=== PATIENT | male | born 2000 | race Caucasian/White ===

== ENCOUNTER 2018-10-27 19:43 | Emergency (ER) | payer SELFPAY ==
[2018-10-27] MEDS ORDERED: LIDOCAINE 1% MPF 5 ML VIAL ONE ×2 (20:11→20:15)
[2018-10-27] MEDS ORDERED: TETANUS & DIPHTHERIA TOX,ADULT 0.5 ML VIAL ONE (20:42)
--- NOTE | 2018-10-27 20:50 | EDPHYS ---
Physician Documentation [facility] Name: Trenton Moon Age: 18 yrs Sex: Male : 2000 Arrival Date: 10/27/2018 Time: 19:45 Bed 20 Private MD: None, None ED Physician Fortunato Hernandez HPI: 10/27 20:38 This 18 yrs old Male presents to ER via Ambulatory with complaints of Passed nh Out Prior To Arrival, Finger Laceration. 20:38 The patient has a laceration related to: playing, from a sharp metal object, occurred nh at home. The laceration(s) is(are) located on the palmar aspect of distal phalanx of left index finger. Onset: The symptoms/episode began/occurred acutely, just prior to arrival. Associated signs and symptoms: The patient has no apparent associated signs or symptoms. The patient has not experienced similar symptoms in the past. The patient has not recently seen a physician. Historical: - Allergies: 20:02 No Known Allergies; tl2 - Home Meds: 20:02 None [Active]; tl2 - PMHx: 20:02 None; tl2 - PSHx: 20:02 None; tl2 - Immunization history:: Last tetanus immunization: unknown. - Social history:: Smoking status: Patient/guardian denies using tobacco. - Ebola Screening: : No symptoms or risks identified at this time. ROS: 20:38 Constitutional: Negative for fever, chills, and weight loss, Eyes: Negative for injury, nh pain, redness, and discharge, ENT: Negative for injury, pain, and discharge, Neck: Negative for injury, pain, and swelling, Cardiovascular: Negative for chest pain, palpitations, and edema, Respiratory: Negative for shortness of breath, cough, wheezing, and pleuritic chest pain, Abdomen/GI: Negative for abdominal pain, nausea, vomiting, diarrhea, and constipation, Back: Negative for injury and pain, : Negative for injury, bleeding, discharge, and swelling, MS/Extremity: Negative for injury and deformity, Neuro: Negative for headache, weakness, numbness, tingling, and seizure, Psych: Negative for depression, anxiety, suicide ideation, homicidal ideation, and hallucinations, Allergy/Immunology: Negative for hives, rash, and allergies, Endocrine: Negative for neck swelling, polydipsia, polyuria, polyphagia, and marked weight changes, Hematologic/Lymphatic: Negative for swollen nodes, abnormal bleeding, and unusual bruising. 20:38 Skin: Positive for laceration(s). Exam: 20:38 Constitutional: This is a well developed, well nourished patient who is awake, alert, nh and in no acute distress. Head/Face: Normocephalic, atraumatic. Eyes: Pupils equal round and reactive to light, extra-ocular motions intact. Lids and lashes normal. Conjunctiva and sclera are non-icteric and not injected. Cornea within normal limits. Periorbital areas with no swelling, redness, or edema. ENT: Nares patent. No nasal discharge, no septal abnormalities noted. Tympanic membranes are normal and external auditory canals are clear. Oropharynx with no redness, swelling, or masses, exudates, or evidence of obstruction, uvula midline. Mucous membranes moist. Neck: Trachea midline, no thyromegaly or masses palpated, and no cervical lymphadenopathy. Supple, full range of motion without nuchal rigidity, or vertebral point tenderness. No Meningismus. Chest/axilla: Normal chest wall appearance and motion. Nontender with no deformity. No lesions are appreciated. Cardiovascular: Regular rate and rhythm with a normal S1 and S2. No gallops, murmurs, or rubs. Normal PMI, no JVD. No pulse deficits. Respiratory: Lungs have equal breath sounds bilaterally, clear to auscultation and percussion. No rales, rhonchi or wheezes noted. No increased work of breathing, no retractions or nasal flaring. Abdomen/GI: Soft, non-tender, with normal bowel sounds. No distension or tympany. No guarding or rebound. No evidence of tenderness throughout. Back: No spinal tenderness. No costovertebral tenderness. Full range of motion. MS/ Extremity: Pulses equal, no cyanosis. Neurovascular intact. Full, normal range of motion. Neuro: Awake and alert, GCS 15, oriented to person, place, time, and situation. Cranial nerves II-XII grossly intact. Motor strength 5/5 in all extremities. Sensory grossly intact. Cerebellar exam normal. Normal gait. Psych: Awake, alert, with orientation to person, place and time. Behavior, mood, and affect are within normal limits. 20:38 Skin: injury, laceration(s), the wound is approximately 2 cm(s), with a depth of .25 cm(s), of the palmar aspect of distal phalanx of left index finger. Vital Signs: 20:02 BP 141 / 65; Pulse 67; Resp 18; Temp 99.9(O); Pulse Ox 100% on R/A; Weight 74.84 kg; tl2 Height 6 ft. 1 in. (185.42 cm); Pain 0/10; 20:02 Body Mass Index 21.77 (74.84 kg, 185.42 cm) tl2 Laceration: 20:38 Wound Repair of 1.5cm ( 0.6in ) subcutaneous laceration to palmar aspect of distal nh phalanx of left index finger. Distal neuro/vascular/tendon intact. MDM: 19:47 Patient medically screened. nh 20:38 Data reviewed: vital signs, nurses notes, and as a result, I will discharge patient. nc Counseling: I had a detailed discussion with the patient and/or guardian regarding: the historical points, exam findings, and any diagnostic results supporting the discharge/admit diagnosis, the need for outpatient follow up, to return to the emergency department if symptoms worsen or persist or if there are any questions or concerns that arise at home. 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 Exp: jd3 12/08/2020. Lot #: [id number]. } Route: IM; Site: right deltoid; Disposition: 10/27/18 20:49 Discharged to Home. Impression: Laceration of blood vessel of left index finger. - Condition is Stable. - Discharge Instructions: Laceration Care, Adult. - Prescriptions for Doxycycline Hyclate 100 mg Oral Tablet - take 1 tablet by ORAL route every 12 hours; 20 tablet. Bactrim 400- 80 mg Oral Tablet - take 2 tablets by ORAL route 2 times per day for 10 days; 20 tablet. - Medication Reconciliation Form, Thank You Letter, Antibiotic Education, Prescription Opioid Use form. - Follow up: Private Physician; When: 2 - 3 days; Reason: Recheck today's complaints. - Problem is new. - Symptoms are unchanged. Addendum: 10/29/2018 21:01 Co-signature as Attending Physician, Fortunato Hernandez MD Available for consultation at p s1 all times . Signatures: Helen Bridges RN RN aa1 Leonie Crooks, AUTOMOTIVE ELECTRICIAN AUTOMOTIVE ELECTRICIAN nc Melissa Adamson RN RN tl2 Shay Cifuentes RN RN jd3 Fortunato Hernandez MD MD ps1 Corrections: (The following items were deleted from the chart) 10/27 20:57 20:49 10/27/2018 20:49 Discharged to Home. Impression: Laceration of blood vessel of aa1 left index finger. Condition is Stable. Forms are Medication Reconciliation Form, Thank You Letter, Antibiotic Education, Prescription Opioid Use. Follow up: Private Physician; When: 2 - 3 days; Reason: Recheck today's complaints. Problem is new. Symptoms are unchanged. nh
--- NOTE | 2018-10-27 20:50 | ER ---
Nurse's Notes [facility] Name: Trenton Moon Age: 18 yrs Sex: Male : 2000 Arrival Date: 10/27/2018 Time: 19:45 Bed 20 Private MD: None, None Diagnosis: Laceration of blood vessel of left index finger Presentation: 10/27 20:00 Presenting complaint: Patient states: small laceration to L pointer finger from pocket tl2 knife. bleeding controlled. Pt reports passing out after incident for about 10-20 seconds. Transition of care: patient was not received from another setting of care. Onset of symptoms was October 27, 2018 at 19:00. Risk Assessment: Do you want to hurt yourself or someone else? Patient reports no desire to harm self or others. Initial Sepsis Screen: Does the patient meet any 2 criteria? No. Patient's initial sepsis screen is negative. Does the patient have a suspected source of infection? No. Patient's initial sepsis screen is negative. Care prior to arrival: None. 20:00 Method Of Arrival: Ambulatory tl2 20:00 Acuity: VELASQUEZ 4 tl2 Triage Assessment: 20:02 Injury Description: Laceration sustained to palmar aspect of distal phalanx of left tl2 index finger is clean, jagged, 0.5 to 2.5 cm long, not bleeding, was sustained 30-60 minutes ago. a small amount of bleeding noted at this time. Historical: - Allergies: 20:02 No Known Allergies; tl2 - Home Meds: 20:02 None [Active]; tl2 - PMHx: 20:02 None; tl2 - PSHx: 20:02 None; tl2 - Immunization history:: Last tetanus immunization: unknown. - Social history:: Smoking status: Patient/guardian denies using tobacco. - Ebola Screening: : No symptoms or risks identified at this time. Screenin:03 Abuse screen: Denies threats or abuse. Nutritional screening: No deficits noted. jd3 Tuberculosis screening: No symptoms or risk factors identified. Fall Risk Ambulatory Aid- None/Bed Rest/Nurse Assist (0 pts). Gait- Normal/Bed Rest/Wheelchair (0 pts) Mental Status- Oriented to own ability (0 pts). Total Wolfe Fall Scale indicates No Risk (0-24 pts). Assessment: 20:02 General: Appears in no apparent distress. uncomfortable, Behavior is cooperative, jd3 appropriate for age, anxious. Pain: Complains of pain in left index finger Quality of pain is described as sharp. Neuro: Level of Consciousness is awake, alert, obeys commands, Oriented to person, place, time, situation, Appropriate for age. Cardiovascular: Capillary refill < 3 seconds Patient's skin is warm and dry. Respiratory: Airway is patent Respiratory effort is even, unlabored, Respiratory pattern is regular, symmetrical. GI: No signs and/or symptoms were reported involving the gastrointestinal system. : No signs and/or symptoms were reported regarding the genitourinary system. EENT: No signs and/or symptoms were reported regarding the EENT system. Derm: Skin is intact, Skin is dry, Skin is normal, Skin temperature is warm. Musculoskeletal: Circulation, motion, and sensation intact. Range of motion: intact in all extremities. 20:02 Injury Description: Laceration sustained to left index finger is clean, 0.5 to 2.5 cm jd3 long, not bleeding, a small amount of bleeding noted at this time. 20:54 Reassessment: Patient appears in no apparent distress at this time. Patient is alert, aa1 oriented x 3, equal unlabored respirations, skin warm/dry/pink. Discussed d/c \T\ f/u instructions with pt \T\ family; denies questions or concerns at this time Patient states feeling better. Vital Signs: 20:02 BP 141 / 65; Pulse 67; Resp 18; Temp 99.9(O); Pulse Ox 100% on R/A; Weight 74.84 kg; tl2 Height 6 ft. 1 in. (185.42 cm); Pain 0/10; 20:02 Body Mass Index 21.77 (74.84 kg, 185.42 cm) tl2 ED Course: 19:45 Patient arrived in ED. mr 19:45 None, None is Private Physician. mr 19:47 [facility] Cro[facility] nh 19:47 Fortunato Hernandez MD is Attending Physician. nh 20:01 Triage completed. tl2 20:02 Shay Cifuentes, JEFFREY is Primary Nurse. jd3 20:03 Patient has correct armband on for positive identification. Bed in low position. Call jd3 light in reach. Side rails up X 1. Adult w/ patient. 20:04 Arm band placed on. jd3 20:30 Assist provider with laceration repair on palmar aspect of distal phalanx of left index aa1 finger that was 2.5 cm. or less using sutures. Set up tray. Performed by Leonie HOLDEN Patient tolerated well. 20:57 Patient did not have IV access during this emergency room visit. 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 Exp: jd3 12/08/2020. Lot #: [id number]. } Route: IM; Site: right deltoid; Outcome: 20:49 Discharge ordered by . ca 20:56 Discharged to home ambulatory, with friend, with significant other. aa1 20:56 Condition: good 20:56 Discharge instructions given to patient, significant other, Instructed on discharge instructions, follow up and referral plans. medication usage, wound care, Demonstrated understanding of instructions, follow-up care, medications, wound care, Prescriptions given X 2. 20:57 Patient left the ED. aa1 Signatures: Helen Bridges RN RN aa1 Leonie Crooks FNP FNP ca Becka Durham mr Melissa Adamson RN RN tl2 Shay Cifuentes RN RN jd3 Corrections: (The following items were deleted from the chart) 20:21 20:02 Derm: Skin is intact, Skin is dry, Skin is normal, Skin temperature is warm jd3 jd3
== END 2018-10-27 20:57 | disposition home or self-care (01) ==
LOC: ER 19:43
PROC: 0JQK0ZZ Repair Left Hand Subcutaneous Tissue and Fascia, Open Approach (ICD-10-PCS; principal; 2018-10-27)
DX: S65.511A Laceration of blood vessel of left index finger, initial encounter (principal); W26.0XXA Contact with knife, initial encounter; Y92.009 Unspecified place in unspecified non-institutional (private) residence as the place of occurrence of the external cause; Z23 Encounter for immunization
CPT/HCPCS: 90714; 99283

== ENCOUNTER 2019-09-05 23:14 | Emergency (ER) | payer SELFPAY ==
[2019-09-05] MEDS ORDERED: LORazepam 2 MG/ML VIAL ONE (23:23)
[2019-09-05] MEDS ORDERED: PROMETHAZINE 25 MG/ML VIAL ONE (23:23)
[2019-09-05] MEDS ORDERED: DIPHENHYDRAMINE 50 MG/ML VIAL ONE (23:24)
[2019-09-05] MEDS ORDERED: EPINEPHRINE/PF 1 MG/ML AMP ONE (23:24)
[2019-09-05] MEDS ORDERED: FAMOTIDINE 20 MG/2 ML VIAL IV ONE (23:30)
[2019-09-05] MEDS ORDERED: METHYLPREDNISOLONE 125 MG INJ ONE (23:30)
[2019-09-05] MEDS ORDERED: NA CHLORIDE 0.9% 1,000 ML ONE (23:30)
--- NOTE | 2019-09-06 00:44 | EDPHYS ---
Physician Documentation [facility] Name: Trenton Moon Age: 19 yrs Sex: Male : 2000 Arrival Date: 09/05/2019 Time: 23:16 Bed 6 Private MD: ED Physician Sebastien rFanco HPI: 09/05 23:37 This 19 yrs old Male presents to ER via Unassigned with complaints of snw Allergic Reaction. 23:37 The patient presents with itching, rash, that is diffuse, redness of skin. Onset: The snw symptoms/episode began/occurred suddenly, and became worse and became persistent. Associated signs and symptoms: Pertinent positives: sore throat. Possible causes: went to change the litter box and erupted in rash/redness. At home the patient or guardian has treated the symptoms with nothing. Severity of symptoms: At their worst the symptoms were severe in the emergency department the symptoms are unchanged. The patient has not experienced similar symptoms in the past. The patient has not recently seen a physician. Historical: - Allergies: 23:45 poison keke; bb - Home Meds: 23:45 None [Active]; bb - PMHx: 23:45 Heart Murmur; bb - PSHx: 23:45 None; bb - Immunization history:: Adult Immunizations up to date. - Social history:: Smoking status: Patient/guardian denies using tobacco, Patient uses street drugs, marijuana. - Ebola Screening: : No symptoms or risks identified at this time. ROS: 23:32 Constitutional: Negative for fever, chills, and weight loss, Eyes: Negative for injury, snw pain, redness, and discharge, ENT: Negative for injury, pain, and discharge, Neck: Negative for injury, pain, and swelling, Cardiovascular: Negative for chest pain, palpitations, and edema, Respiratory: Negative for shortness of breath, cough, wheezing, and pleuritic chest pain, Abdomen/GI: Negative for abdominal pain, nausea, vomiting, diarrhea, and constipation, Back: Negative for injury and pain, : Negative for injury, bleeding, discharge, and swelling, MS/Extremity: Negative for injury and deformity, Neuro: Negative for headache, weakness, numbness, tingling, and seizure. 23:32 Skin: Positive for erythema, swelling, of the generalized. Exam: 23:30 Head/Face: Normocephalic, atraumatic. Eyes: Pupils equal round and reactive to light, snw extra-ocular motions intact. Lids and lashes normal. Conjunctiva and sclera are non-icteric and not injected. Cornea within normal limits. Periorbital areas with no swelling, redness, or edema. 23:30 Neck: Trachea midline, no thyromegaly or masses palpated, and no cervical lymphadenopathy. Supple, full range of motion without nuchal rigidity, or vertebral point tenderness. No Meningismus. Chest/axilla: Normal chest wall appearance and motion. Nontender with no deformity. No lesions are appreciated. Cardiovascular: Regular rate and rhythm with a normal S1 and S2. No gallops, murmurs, or rubs. Normal PMI, no JVD. No pulse deficits. Respiratory: Lungs have equal breath sounds bilaterally, clear to auscultation and percussion. No rales, rhonchi or wheezes noted. No increased work of breathing, no retractions or nasal flaring. Abdomen/GI: Soft, non-tender, with normal bowel sounds. No distension or tympany. No guarding or rebound. No evidence of tenderness throughout. Back: No spinal tenderness. No costovertebral tenderness. Full range of motion. MS/ Extremity: Pulses equal, no cyanosis. Neurovascular intact. Full, normal range of motion. Neuro: Awake and alert, GCS 15, oriented to person, place, time, and situation. Cranial nerves II-XII grossly intact. Motor strength 5/5 in all extremities. Sensory grossly intact. Cerebellar exam normal. Normal gait. Psych: Awake, alert, with orientation to person, place and time. Behavior, mood, and affect are within normal limits. 23:30 Constitutional: The patient appears anxious, hyperemic with hives 23:30 ENT: Nose: is normal, Mouth: is normal, Posterior pharynx: swelling, that is mild, erythema, that is marked, Voice: is normal. 23:30 Skin: Appearance: Color: erythematous, Temperature: warm, Moisture: normal moisture, hives. Vital Signs: 23:20 BP 165 / 58; Pulse 111; Resp 24 S; Temp 99.3(O); Pulse Ox 98% on R/A; Weight 72.57 kg bb (R); Height 5 ft. 11 in. (180.34 cm) (R); Pain 04/29; 23:36 BP 117 / 75; Pulse 92; Resp 18; Pulse Ox 92% on R/A; Weight 72.57 kg; mg2 09/06 00:16 BP 123 / 87; Pulse 89; Resp 18; Pulse Ox 100% on 2 lpm NC; ak1 09/05 23:20 Body Mass Index 22.32 (72.57 kg, 180.34 cm) bb MDM: 09/05 23:38 Patient medically screened. snw 23:55 Data reviewed: vital signs, nurses notes. Data interpreted: Pulse oximetry: on room air snw is 92 %. Interpretation: hypoxia. Plan: O2 by NC applied. Counseling: I had a detailed discussion with the patient and/or guardian regarding: the historical points, exam findings, and any diagnostic results supporting the discharge/admit diagnosis, the need for outpatient follow up, to return to the emergency department if symptoms worsen or persist or if there are any questions or concerns that arise at home. Response to treatment: the patient's symptoms have markedly improved after treatment. Special discussion: Based on the history and exam findings, there is no indication for further emergent testing or inpatient evaluation. I discussed with the patient/guardian the need to see the refinery operator crude unit for further evaluation of the symptoms. I discussed with the patient/guardian the need to see the primary care provider for further evaluation of the symptoms. Administered Medications: 23:29 Drug: Benadryl 25 mg Route: IVP; Site: right antecubital; mg2 23:47 Follow up: Response: No adverse reaction; Marked relief of symptoms mg2 23:29 Drug: Phenergan 25 mg Route: IVP; Site: right antecubital; mg2 23:47 Follow up: Response: No adverse reaction; Marked relief of symptoms mg2 23:36 Drug: NS 0.9% 1000 ml Route: IV; Rate: 1 bolus; Site: right antecubital; mg2 09/06 00:17 Follow up: IV Status: Completed infusion; IV Intake: 1000ml ak1 09/05 23:36 Drug: SOLU-Medrol 125 mg Route: IVP; Site: right antecubital; mg2 23:46 Follow up: Response: No adverse reaction; Marked relief of symptoms mg2 23:36 Drug: Pepcid 20 mg Route: IVP; Site: right antecubital; mg2 23:46 Follow up: Response: No adverse reaction; Marked relief of symptoms mg2 23:37 Drug: Ativan 2 mg Route: IVP; Site: right antecubital; mg2 23:46 Follow up: Response: No adverse reaction; Marked relief of symptoms mg2 23:39 CANCELLED (Physician Discretion): EPINEPHrine 0.1mg/mL 1:10,000 0.03 mg/kg IVP once; mg2 not to exceed 1 milligram 23:40 Drug: EPINEPHrine 1mg/mL 1:1,000 0.3 mg {Note: 0.3 ml given .} Route: IM; Site: left mg2 deltoid; 23:46 Follow up: Response: No adverse reaction; Marked relief of symptoms mg2 Disposition: 09/06 06:14 Co-signature as Attending Physician, Sebastien Franco MD I agree with the assessment and kdr plan of care. Disposition: 09/06/19 00:43 Discharged to Home. Impression: Anaphylactic reaction, unspecified. - Condition is Stable. - Discharge Instructions: Allergies, Adult, Anaphylactic Reaction, Adult. - Prescriptions for Prednisone 20 mg Oral Tablet - take 2 tablet by ORAL route once daily for 5 days; 10 tablet. EpiPen 0.3 mg Injection auto- injector - inject 1 pen by INTRAMUSCULAR route as directed Inject into the outer portion of the thigh, through clothing if necessary. Indicated in the emergency treatment of allergic reactions, if used go immediately to nearest emergency room; 1 box. Zyrtec 10 mg Oral Tablet - take 1 tablet by ORAL route once daily As needed; 20 tablet. Pepcid 20 mg Oral Tablet - take 1 tablet by ORAL route once daily; 20 tablet. - Medication Reconciliation Form, Thank You Letter, Antibiotic Education, Prescription Opioid Use form. - Follow up: Private Physician; When: Tomorrow; Reason: Recheck today's complaints, Continuance of care, Re-evaluation by your physician. Follow up: Emergency Department; When: As needed; Reason: Worsening of condition. - Notes: Do not expose yourself to cat litter Signatures: Sebastien Franco MD MD kdr Therrien, Shelly, NAVIN-C CONTRACT PROCESSOR-Csnw Yasmeen Fowler RN RN bb Ximena Monae RN RN Topher Damon RN RN mg2 Gretel Mayorga RN ak1 Corrections: (The following items were deleted from the chart) 09/05 23:39 23:23 EpiPen [EPINEPHrine 0.1mg/mL 1:10,000 0.03 mg/kg IVP once; not to exceed 1 mg2 milligram] ordered. duane 09/06 01:00 00:43 09/06/2019 00:43 Discharged to Home. Impression: Anaphylactic reaction, ea unspecified. Condition is Stable. Forms are Medication Reconciliation Form, Thank You Letter, Antibiotic Education, Prescription Opioid Use. Follow up: Private Physician; When: Tomorrow; Reason: Recheck today's complaints, Continuance of care, Re-evaluation by your physician. Follow up: Emergency Department; When: As needed; Reason: Worsening of condition. snw
--- NOTE | 2019-09-06 00:44 | ER ---
Nurse's Notes [facility] Name: Trenton Moon Age: 19 yrs Sex: Male : 2000 Arrival Date: 09/05/2019 Time: 23:16 Bed 6 Private MD: Diagnosis: Anaphylactic reaction, unspecified Presentation: 09/05 23:20 Presenting complaint: Patient states: he was cleaning out to cat litter box and approx bb 30 mins later turned red all over. Transition of care: patient was not received from another setting of care. Onset: The symptoms/episode began/occurred acutely. Anaphylaxis evaluation. Anaphylaxis evaluation, no signs or symptoms of anaphylaxis were noted. Onset of symptoms was September 05, 2019. Risk Assessment: Do you want to hurt yourself or someone else? Patient reports no desire to harm self or others. Initial Sepsis Screen: Does the patient meet any 2 criteria? No. Patient's initial sepsis screen is negative. Does the patient have a suspected source of infection? No. Patient's initial sepsis screen is negative. Care prior to arrival: None. 23:20 Method Of Arrival: Ambulatory bb 23:20 Acuity: VELASQUEZ 2 bb Historical: - Allergies: 23:45 poison keke; bb - Home Meds: 23:45 None [Active]; bb - PMHx: 23:45 Heart Murmur; bb - PSHx: 23:45 None; bb - Immunization history:: Adult Immunizations up to date. - Social history:: Smoking status: Patient/guardian denies using tobacco, Patient uses street drugs, marijuana. - Ebola Screening: : No symptoms or risks identified at this time. Screenin:47 Abuse screen: Denies threats or abuse. Denies injuries from another. Nutritional mg2 screening: No deficits noted. Tuberculosis screening: No symptoms or risk factors identified. Fall Risk IV access (20 points). Assessment: 23:47 General: Appears uncomfortable, Behavior is anxious. Pain: Complains of pain in head mg2 Pain currently is 2 out of 10 on a pain scale. Quality of pain is described as aching, Pain began gradually, Is intermittent. Neuro: Level of Consciousness is awake, alert, obeys commands, Oriented to person, place, time, situation. Cardiovascular: Capillary refill < 3 seconds Patient's skin is warm and dry. Respiratory: Airway is patent Respiratory effort is even, unlabored, Respiratory pattern is regular, symmetrical, GI: No deficits noted. : No signs and/or symptoms were reported regarding the genitourinary system. EENT: No signs and/or symptoms were reported regarding the EENT system. Derm: Skin is intact, is healthy with good turgor, Skin is pink, warm \T\ dry. normal, Rash noted that is red, urticaria, on back, chest, abdomen, right arm, left arm, right leg and left leg. Musculoskeletal: Circulation, motion, and sensation intact. Capillary refill < 3 seconds. 09/06 00:13 Reassessment: Patient appears in no apparent distress at this time. Patient states ak1 feeling better. Patient states symptoms have improved. 00:14 Reassessment: eating and tolerating ice chips. ak1 00:44 General: Appears in no apparent distress. comfortable, Behavior is cooperative, drowsy. ak1 Neuro: Level of Consciousness is obeys commands, Oriented to person, place, Speech is slurred, muffled from IV medications. 00:56 Reassessment: Patient and/or family updated on plan of care and expected duration. Pain ea level reassessed. Pt is drowsy, cooperative, respirations even and unlabored. Pt oriented to person and place. Discharge instruction given to , verbalized the understanding of instruction. Pt left via wheelchair, tolerating well. Pt assisted to private vehicle per ED staff accompanied by . Vital Signs: 09/05 23:20 BP 165 / 58; Pulse 111; Resp 24 S; Temp 99.3(O); Pulse Ox 98% on R/A; Weight 72.57 kg bb (R); Height 5 ft. 11 in. (180.34 cm) (R); Pain 6/10; 23:36 BP 117 / 75; Pulse 92; Resp 18; Pulse Ox 92% on R/A; Weight 72.57 kg; mg2 09/06 00:16 BP 123 / 87; Pulse 89; Resp 18; Pulse Ox 100% on 2 lpm NC; ak1 09/05 23:20 Body Mass Index 22.32 (72.57 kg, 180.34 cm) bb ED Course: 09/05 23:16 Patient arrived in ED. es 23:21 Nayeli Orosco FNP-C [facility]. snw 23:21 Sebastien Franco MD is Attending Physician. snw 23:22 Ximena Monae RN is Primary Nurse. ea 23:22 Inserted saline lock: 20 gauge in right antecubital area, using aseptic technique. ea 23:45 Triage completed. bb 23:45 Arm band placed on. mg2 23:47 No provider procedures requiring assistance completed. mg2 23:49 Patient has correct armband on for positive identification. site monitor on. Pulse mg2 ox on. NIBP on. Door closed. 09/06 00:55 IV discontinued, intact, bleeding controlled, No redness/swelling at site. Pressure ea dressing applied. Administered Medications: 09/05 23:29 Drug: Benadryl 25 mg Route: IVP; Site: right antecubital; mg2 23:47 Follow up: Response: No adverse reaction; Marked relief of symptoms mg2 23:29 Drug: Phenergan 25 mg Route: IVP; Site: right antecubital; mg2 23:47 Follow up: Response: No adverse reaction; Marked relief of symptoms mg2 23:36 Drug: NS 0.9% 1000 ml Route: IV; Rate: 1 bolus; Site: right antecubital; mg2 09/06 00:17 Follow up: IV Status: Completed infusion; IV Intake: 1000ml ak1 09/05 23:36 Drug: SOLU-Medrol 125 mg Route: IVP; Site: right antecubital; mg2 23:46 Follow up: Response: No adverse reaction; Marked relief of symptoms mg2 23:36 Drug: Pepcid 20 mg Route: IVP; Site: right antecubital; mg2 23:46 Follow up: Response: No adverse reaction; Marked relief of symptoms mg2 23:37 Drug: Ativan 2 mg Route: IVP; Site: right antecubital; mg2 23:46 Follow up: Response: No adverse reaction; Marked relief of symptoms mg2 23:39 CANCELLED (Physician Discretion): EPINEPHrine 0.1mg/mL 1:10,000 0.03 mg/kg IVP once; mg2 not to exceed 1 milligram 23:40 Drug: EPINEPHrine 1mg/mL 1:1,000 0.3 mg {Note: 0.3 ml given .} Route: IM; Site: left mg2 deltoid; 23:46 Follow up: Response: No adverse reaction; Marked relief of symptoms mg2 Intake: 09/06 00:17 IV: 1000ml; Total: 1000ml. ak1 Outcome: 00:43 Discharge ordered by . snw 00:58 Discharged to home via wheelchair, with significant other. ea 00:58 Condition: stable 00:58 Discharge instructions given to patient, family, Instructed on discharge instructions, follow up and referral plans. medication usage, Demonstrated understanding of instructions, follow-up care, medications, Prescriptions given X 4. 01:00 Patient left the ED. ea Signatures: Nayeli Orosco, WET MACHINE CUTTER-C WET MACHINE CUTTER-Csnw Sara Estrada Brenda, RN RN Gretel Shearer RN RN ak1 Ximena Monae RN RN ea Gardose, Michele RN RN mg2
[2019-09-06 02:58] VITALS: TEMP 99.3
[2019-09-06 03:01] VITALS: BP 123/87; O2SAT 100
== END 2019-09-06 01:00 | disposition home or self-care (01) ==
LOC: ER 23:14
DX: T78.2XXA Anaphylactic shock, unspecified, initial encounter (principal); F12.90 Cannabis use, unspecified, uncomplicated
CPT/HCPCS: 96361; 96372; 96374; 96375; 99284; J0171; J1200; J2550; J2930; J7030

== ENCOUNTER 2019-09-07 15:47 | Emergency (ER) | payer SELFPAY ==
--- NOTE | 2019-09-07 16:27 | RAD REPORT ---
EXAM DESCRIPTION: RAD - Chest Single View - 09/07/2019 4:20 pm CLINICAL HISTORY: Shortness of breath, tachycardia COMPARISON: None. TECHNIQUE: AP portable chest image was obtained 1614 hours . FINDINGS: Lungs are clear. Heart and vasculature are normal. No measurable pleural effusion and no p neumothorax. No acute bony abnormality seen. No acute aortic findings suspected. IMPRESSION: No acute cardiopulmonary process.
[2019-09-07 16:36] LABS: Basophils % 0.4 % (0-1.3); Hematocrit 46.6 % (39.6-49.0); Lymphocytes % 23.6 % (15.3-44.8); MPV 8.2 fL (7.6-11.3); Protime INR 0.98
[2019-09-07 16:55] LABS: ALT/SGPT 25 U/L (12-78); AST/SGOT 15 U/L (15-37); Alkaline Phosphatase 62 U/L (45-117); BUN Blood Urea Nitrogen 13 mg/dL (7-18); Bicarbonate 27 mmol/L (21-32); Bilirubin Direct 0.2 mg/dL (0-0.2); Bilirubin Total 0.6 mg/dL (0.2-1.0); Glucose Level 105 mg/dL (74-106); Magnesium 2.4 mg/dL (1.8-2.4); NT PRO-BNP 30 pg/mL (<125); Potassium 3.4 mmol/L (3.5-5.1); Protein, Total 7.1 g/dL (6.4-8.2); Sodium Level 141 mmol/L (136-145); Thyroid Stimulating Hormone 0.626 uIU/mL (0.360-3.740); Troponin (Emerg Dept Use Only) < 0.02 ng/mL (0.0-0.045)
[2019-09-07] MEDS ORDERED: POTASSIUM CL SA 10 MEQ TAB PO ONE (17:03)
--- NOTE | 2019-09-07 17:13 | ER ---
Nurse's Notes [facility] Name: Trenton Moon Age: 19 yrs Sex: Male : 2000 Arrival Date: 09/07/2019 Time: 15:48 Bed 19 Private MD: Diagnosis: Chest pain, unspecified Presentation: 09/07 16:13 Presenting complaint: Patient states: while i was showering 15 min [facility], i felt my heart mg2 racing, chest tightening and short of breath. Transition of care: patient was not received from another setting of care. Onset of symptoms was September 07, 2019. Risk Assessment: Do you want to hurt yourself or someone else? Patient reports no desire to harm self or others. Initial Sepsis Screen: Does the patient meet any 2 criteria? No. Patient's initial sepsis screen is negative. Does the patient have a suspected source of infection? No. Patient's initial sepsis screen is negative. Care prior to arrival: None. 16:13 Method Of Arrival: Ambulatory mg2 16:13 Acuity: VELASQUEZ 3 mg2 Historical: - Allergies: 16:15 POISON LOCO; mg2 - Home Meds: 16:15 None [Active]; mg2 - PMHx: 16:15 Heart Murmur; mg2 - PSHx: 16:15 None; mg2 - Immunization history:: Flu vaccine is not up to date. - Social history:: Patient uses street drugs, marijuana, everyday, Smoking status: unknown. - Ebola Screening: : No symptoms or risks identified at this time. Screenin:25 Abuse screen: Denies threats or abuse. Denies injuries from another. Nutritional mg2 screening: No deficits noted. Tuberculosis screening: No symptoms or risk factors identified. Fall Risk IV access (20 points). Assessment: 16:25 General: Appears in no apparent distress. comfortable, Behavior is calm, cooperative. mg2 Pain: Complains of pain in chest Pain does not radiate. Pain currently is 1 out of 10 on a pain scale. Quality of pain is described as aching, Pain began gradually, 30 min ago. Is intermittent. Neuro: Level of Consciousness is awake, alert, obeys commands, Oriented to person, place, time, situation. Cardiovascular: Capillary refill < 3 seconds Patient's skin is warm and dry. Cardiovascular: Reports shortness of breath, since chest tightness. Cardiovascular: Reports palpitations. Respiratory: Reports shortness of breath at rest Airway is patent Respiratory effort is even, unlabored, Respiratory pattern is regular, symmetrical. GI: No signs and/or symptoms were reported involving the gastrointestinal system. : No signs and/or symptoms were reported regarding the genitourinary system. EENT: No signs and/or symptoms were reported regarding the EENT system. Derm: Skin is intact, is healthy with good turgor, Skin is pink, warm \T\ dry. normal. Musculoskeletal: Circulation, motion, and sensation intact. Capillary refill < 3 seconds. Vital Signs: 16:14 BP 143 / 75; Pulse 86; Resp 18; Temp 99.4(TE); Pulse Ox 97% on R/A; Weight 72.57 kg; mg2 Height 5 ft. 11 in. (180.34 cm); Pain 1/10; 16:53 BP 101 / 91; Pulse 72; Resp 18; Pulse Ox 98% on R/A; mg2 16:14 Body Mass Index 22.32 (72.57 kg, 180.34 cm) mg2 ED Course: 15:48 Patient arrived in ED. as 15:51 Ramakrishna Higuera PA is PHCP. jr8 15:51 Morgan Juan MD is Attending Physician. jr8 16:13 Topher Rosen, JEFFREY is Primary Nurse. mg2 16:14 Triage completed. mg2 16:16 Arm band placed on. mg2 16:21 XRAY Chest (1 view) In Process Unspecified. EDMS 16:25 No provider procedures requiring assistance completed. Inserted saline lock: 20 gauge mg2 in right antecubital area, using aseptic technique. Blood collected. Patient maintains SpO2 saturation greater than 95% on room air. 16:34 Patient has correct armband on for positive identification. child monitor on. Pulse mg2 ox on. NIBP on. Door closed. 17:19 IV discontinued, intact, bleeding controlled, No redness/swelling at site. Pressure mg2 dressing applied. Administered Medications: 17:13 Drug: Potassium Chloride 20 mEq Route: PO; mg2 17:13 Follow up: Response: No adverse reaction; Medication administered at discharge. mg2 Outcome: 17:13 Discharge ordered by . jr8 17:19 Discharged to home ambulatory, with family. mg2 17:19 Condition: stable 17:19 Discharge instructions given to patient, family, Instructed on discharge instructions, follow up and referral plans. Demonstrated understanding of instructions, follow-up care. 17:19 Patient left the ED. mg2 Signatures: Dispatcher [employer] Jodie Quinones Josh, PA PA jr8 Topher Rosen, RN RN mg2
--- NOTE | 2019-09-07 17:14 | EDPHYS ---
Physician Documentation [facility] Name: Trenton Moon Age: 19 yrs Sex: Male : 2000 Arrival Date: 09/07/2019 Time: 15:48 Bed 19 Private MD: ED Physician Morgan Juan HPI: 09/07 16:04 This 19 yrs old Male presents to ER via Unassigned with complaints of jr8 Irregular Pulse. 16:04 The patient presents with a history of heart racing. Context: The symptoms occur at jr8 rest. Onset: The symptoms/episode began/occurred 2 year(s) ago. Modifying factors: The symptoms are aggravated by substance abuse Reports chronic use of acid in the past. showering. Associated signs and symptoms: Pertinent negatives: cough, lightheadedness, nausea, syncope, near-syncope. Severity of symptoms: At their worst the symptoms were moderate in the emergency department the symptoms are unchanged. Pt reports for the past couple years he has had episodes of chest tightness and palpitations but recently has started to bother him more, this episode occurred after showering.. Historical: - Allergies: 16:15 POISON LOCO; mg2 - Home Meds: 16:15 None [Active]; mg2 - PMHx: 16:15 Heart Murmur; mg2 - PSHx: 16:15 None; mg2 - Immunization history:: Flu vaccine is not up to date. - Social history:: Patient uses street drugs, marijuana, everyday, Smoking status: unknown. - Ebola Screening: : No symptoms or risks identified at this time. ROS: 16:07 Constitutional: Negative for fever, chills, and weight loss, Eyes: Negative for injury, jr8 pain, redness, and discharge, ENT: Negative for injury, pain, and discharge, Neck: Negative for injury, pain, and swelling, Cardiovascular: Negative for chest pain, palpitations, and edema, Respiratory: Negative for shortness of breath, cough, wheezing, and pleuritic chest pain, Abdomen/GI: Negative for abdominal pain, nausea, vomiting, diarrhea, and constipation, Back: Negative for injury and pain, MS/Extremity: Negative for injury and deformity, Neuro: Negative for headache, weakness, numbness, tingling, and seizure. Exam: 16:07 Constitutional: This is a well developed, well nourished patient who is awake, alert, jr8 and in no acute distress. Head/Face: Normocephalic, atraumatic. Eyes: Pupils equal round and reactive to light, extra-ocular motions intact. Lids and lashes normal. Conjunctiva and sclera are non-icteric and not injected. Cornea within normal limits. Periorbital areas with no swelling, redness, or edema. ENT: Nares patent. No nasal discharge, no septal abnormalities noted. Tympanic membranes are normal and external auditory canals are clear. Oropharynx with no redness, swelling, or masses, exudates, or evidence of obstruction, uvula midline. Mucous membranes moist. Neck: Trachea midline, no thyromegaly or masses palpated, and no cervical lymphadenopathy. Supple, full range of motion without nuchal rigidity, or vertebral point tenderness. No Meningismus. Chest/axilla: Normal chest wall appearance and motion. Nontender with no deformity. No lesions are appreciated. Cardiovascular: Regular rate and rhythm with a normal S1 and S2. No gallops, murmurs, or rubs. Normal PMI, no JVD. No pulse deficits. Respiratory: Lungs have equal breath sounds bilaterally, clear to auscultation and percussion. No rales, rhonchi or wheezes noted. No increased work of breathing, no retractions or nasal flaring. Abdomen/GI: Soft, non-tender, with normal bowel sounds. No distension or tympany. No guarding or rebound. No evidence of tenderness throughout. Back: No spinal tenderness. No costovertebral tenderness. Full range of motion. Skin: Warm, dry with normal turgor. Normal color with no rashes, no lesions, and no evidence of cellulitis. Neuro: Awake and alert, GCS 15, oriented to person, place, time, and situation. Cranial nerves II-XII grossly intact. Motor strength 5/5 in all extremities. Sensory grossly intact. Cerebellar exam normal. Normal gait. 16:07 Cardiovascular: Rate: normal, Rhythm: regular, Pulses: no pulse deficits are appreciated, Heart sounds: normal, normal S1and S2, Edema: is not appreciated. Vital Signs: 16:14 BP 143 / 75; Pulse 86; Resp 18; Temp 99.4(TE); Pulse Ox 97% on R/A; Weight 72.57 kg; mg2 Height 5 ft. 11 in. (180.34 cm); Pain 1/10; 16:53 BP 101 / 91; Pulse 72; Resp 18; Pulse Ox 98% on R/A; mg2 16:14 Body Mass Index 22.32 (72.57 kg, 180.34 cm) mg2 MDM: 15:52 Patient medically screened. jr8 17:11 Data reviewed: vital signs, nurses notes, lab test result(s), EKG, radiologic studies, jr8 and as a result, I will discharge patient. Data interpreted: Pulse oximetry: on room air is 98 %. Interpretation: normal. Counseling: I had a detailed discussion with the patient and/or guardian regarding: lab results, radiology results. Special discussion: Based on the patient's history, exam, and Dx evaluation, there is no indication for emergent intervention or inpatient Tx. It is understood by the patient/guardian that if the Sx's persist or worsen they need to return immediately for re-evaluation. 09/07 16:00 Order name: Basic Metabolic Panel; Complete Time: 16:56 09/07 16:00 Order name: CBC with Diff; Complete Time: 16:56 09/07 16:00 Order name: LFT's; Complete Time: 16:56 09/07 16:00 Order name: Magnesium; Complete Time: 16:56 09/07 16:00 Order name: NT PRO-BNP; Complete Time: 16:56 09/07 16:00 Order name: PT-INR; Complete Time: 16:56 09/07 16:00 Order name: Troponin (emerg Dept Use Only); Complete Time: 16:56 09/07 16:00 Order name: XRAY Chest (1 view); Complete Time: 16:32 09/07 16:00 Order name: EKG; Complete Time: 16:01 09/07 16:00 Order name: Cardiac monitoring; Complete Time: 16:16 09/07 16:00 Order name: EKG - Nurse/Tech; Complete Time: 16:16 09/07 16:00 Order name: TSH; Complete Time: 16:56 09/07 16:00 Order name: T4 Free; Complete Time: 16:56 09/07 16:00 Order name: IV Saline Lock; Complete Time: 16:24 8 09/07 16:00 Order name: Labs collected and sent; Complete Time: 16:24 8 09/07 16:00 Order name: O2 Per Protocol; Complete Time: 16:09/07 16:00 Order name: O2 Sat Monitoring; Complete Time: 16:24 Administered Medications: 17:13 Drug: Potassium Chloride 20 mEq Route: PO; mg2 17:13 Follow up: Response: No adverse reaction; Medication administered at discharge. mg2 Disposition: 09/07/19 17:13 Discharged to Home. Impression: Chest pain, unspecified. - Condition is Stable. - Discharge Instructions: Nonspecific Chest Pain, Palpitations. - Medication Reconciliation Form, Thank You Letter form. - Follow up: Emergency Department; When: 2 - 3 days; Reason: Recheck today's complaints, Re-evaluation by your physician. - Problem is new. - Symptoms are resolved. Signatures: Dispatcher [employer] EDMT Ramakrishna Higuera PA PA jr8 Topher Rosen RN RN mg2 Corrections: (The following items were deleted from the chart) 17: 17:13 09/07/2019 17:13 Discharged to Home. Impression: Chest pain, unspecified. mg2 Condition is Stable. Forms are Medication Reconciliation Form, Thank You Letter, Antibiotic Education, Prescription Opioid Use. Follow up: Emergency Department; When: 2 - 3 days; Reason: Recheck today's complaints, Re-evaluation by your physician. Problem is new. Symptoms are resolved. jr8
[2019-09-07 19:21] VITALS: TEMP 99.4
[2019-09-07 19:22] VITALS: BP 101/91; O2SAT 98
--- NOTE | 2019-09-08 06:10 | EKG ---
Test Date: 2019-09-07 Test Time: 16:00:22 Jelly Filter Tender: MEASUREMENT RESULTS: Intervals: Rate: 86 ID: [id number] QRSD: 84 QT: 360 QTc: 430 [place]: P: 27 ID: [id number] QRS: 39 T: 31 INTERPRETIVE STATEMENTS: Normal sinus rhythm Normal ECG Compared to ECG 11/05/2017 14:40:47 Sinus bradycardia no longer present Sinus arrhythmia no longer present Electronically Signed On 09-08-19 06:09:15 CDT by Conrado Martinez
== END 2019-09-07 17:19 | disposition home or self-care (01) ==
LOC: ER 15:47
DX: R07.9 Chest pain, unspecified (principal); R01.1 Cardiac murmur, unspecified; Z91.09 Other allergy status, other than to drugs and biological substances
CPT/HCPCS: 36415; 71045; 80048; 80076; 83735; 83880; 84439; 84443; 84484; 85025; 85610; 93005; 99285

== ENCOUNTER 2020-01-29 19:34 | Emergency (ER) | payer SELFPAY ==
[2020-01-29] MEDS ORDERED: NA CHLORIDE 0.9% 1,000 ML ONE (20:28)
[2020-01-29] MEDS ORDERED: PANTOPRAZOLE 40 MG INJ ONE (20:28)
[2020-01-29 21:04] LABS: Absolute Lymphocytes (CBC) 1.7 K/uL (0.7-4.9); Basophils % 0.4 % (0-1.3); Hematocrit 45.1 % (39.6-49.0); Lymphocytes % 16.4 % (15.3-44.8); MPV 8.1 fL (7.6-11.3); RBC Red Blood Cell Count 5.18 M/uL (4.33-5.43)
[2020-01-29 21:15] LABS: ALT/SGPT 29 U/L (12-78); AST/SGOT 18 U/L (15-37); Alkaline Phosphatase 70 U/L (45-117); BUN Blood Urea Nitrogen 17 mg/dL (7-18); Bicarbonate 30 mmol/L (21-32); Bilirubin Direct < 0.1 mg/dL (0-0.2); Bilirubin Total 0.4 mg/dL (0.2-1.0); Glucose Level 92 mg/dL (74-106); Lipase 69 U/L (73-393); Potassium 3.8 mmol/L (3.5-5.1); Protein, Total 7.7 g/dL (6.4-8.2); Sodium Level 140 mmol/L (136-145)
--- NOTE | 2020-01-29 21:32 | RAD REPORT ---
EXAM DESCRIPTION: US - Abdomen Exam Limited - 01/29/2020 9:10 pm CLINICAL HISTORY: Abdominal pain. COMPARISON: None. FINDINGS: The patient had recently eaten so the gallbladder is contracted. This limits evaluation. A gallstone is not seen. 3 millimeter echogenic structure is present within the gallbladder without shadowing. This may repres ent a polyp The biliary tree is normal caliber. IMPRESSION: Probable 3 millimeter polyp Otherwise, grossly normal gallbladder ultrasound
[2020-01-29 21:39] LABS: Urine Blood NEGATIVE (NEG); Urine Glucose NEGATIVE (NEG); Urine Protein 1+ (NEG); Urine Specific Gravity >1.030 (1.005-1.030)
--- NOTE | 2020-01-29 21:48 | RAD REPORT ---
EXAM DESCRIPTION: RAD - Abdomen Acute Series - 01/29/2020 8:45 pm CLINICAL HISTORY: Abd pain FINDINGS: The bowel gas pattern is unremarkable with a moderate amount of stool throughout the colon . Free air is not seen beneath the diaphragm. No abnormal calcification seen
--- NOTE | 2020-01-29 22:08 | ER ---
Nurse's Notes [facility] Name: Trenton Moon Age: 19 yrs Sex: Male : 2000 Arrival Date: 01/29/2020 Time: 19:36 Bed 14 Private MD: Diagnosis: Abdominal tenderness;Gastritis, unspecified Presentation: 01/28 19:58 Chief complaint: Patient states: "I've had some pretty bad pain in my upper stomach aj1 area. I take ibuprofen for it but when it wears off its pretty unbearable" Reports epigastric abdominal pain for the past 3 to 4 days. Denies N/V/D. Denies fever. States that its worse if he "eats a lot". Coronavirus screen: The patient has NOT traveled to a country currently being monitored by the CDC within the last 14 days. Ebola Screen: Patient denies travel to an Ebola-affected area in the 21 days before illness onset. Initial Sepsis Screen: Does the patient meet any 2 criteria? No. Patient's initial sepsis screen is negative. Does the patient have a suspected source of infection? Yes: Acute abdominal pain. Risk Assessment: Do you want to hurt yourself or someone else? Patient reports no desire to harm self or others. 19:58 Method Of Arrival: Ambulatory [facility] 19:58 Acuity: VELASQUEZ 3 aj1 Triage Assessment: 20:00 General: Appears in no apparent distress. comfortable, Behavior is calm, cooperative, aj1 appropriate for age. Pain: Complains of pain in epigastric area Pain does not radiate. Pain currently is 4 out of 10 on a pain scale. Quality of pain is described as pressure. Pain: Aggravated by repositioning, "eating a lot". Neuro: Level of Consciousness is awake, alert, obeys commands. Cardiovascular: Patient's skin is warm and dry. Respiratory: Airway is patent Respiratory effort is even, unlabored, Respiratory pattern is regular, symmetrical. GI: Abdomen is flat, non-distended, Reports upper abdominal pain, Patient currently denies diarrhea, nausea, vomiting. Historical: - Allergies: 20:00 POISON LOCO; aj1 - Home Meds: 20:00 None [Active]; aj1 - PMHx: 20:00 Heart Murmur; aj1 - PSHx: 20:00 None; aj1 - Immunization history:: Flu vaccine is not up to date. - Social history:: Smoking status: Patient/guardian denies using tobacco. - Family history:: not pertinent. Screenin:15 Abuse screen: Denies threats or abuse. Denies injuries from another. Nutritional aa1 screening: No deficits noted. Tuberculosis screening: No symptoms or risk factors identified. Fall Risk None identified. Assessment: 20:15 General: Appears in no apparent distress. comfortable, Behavior is calm, cooperative, aa1 appropriate for age. Pain: Complains of pain in left upper quadrant and right upper quadrant and epigastric area Pain began 2-3 days ago. Aggravated by eating. Neuro: Level of Consciousness is awake, alert, obeys commands, Oriented to person, place, time, situation, Moves all extremities. Full function Gait is steady. Cardiovascular: Denies chest pain, shortness of breath, Heart tones S1 S2 present Rhythm is regular. Respiratory: Airway is patent Respiratory effort is even, unlabored, Respiratory pattern is regular, symmetrical. GI: Abdomen is non-distended, Bowel sounds present X 4 quads. Abd is soft X 4 quads Abdomen is tender to palpation in epigastric area, right upper quadrant and left upper quadrant Reports upper abdominal pain, epigastric pain, Patient currently denies diarrhea, nausea, vomiting. : No signs and/or symptoms were reported regarding the genitourinary system. EENT: No signs and/or symptoms were reported regarding the EENT system. Derm: Skin is intact, is healthy with good turgor, Skin is pink, warm \\T\\ dry. Musculoskeletal: Circulation, motion, and sensation intact. Capillary refill < 3 seconds, Range of motion: intact in all extremities. 21:20 Reassessment: Patient appears in no apparent distress at this time. Patient and/or aa1 family updated on plan of care and expected duration. Pain level reassessed. Patient is alert, oriented x 3, equal unlabored respirations, skin warm/dry/pink. Awaiting lab results. 22:34 Reassessment: Patient appears in no apparent distress at this time. Patient is alert, aa1 oriented x 3, equal unlabored respirations, skin warm/dry/pink. Discussed d/c \\T\\ f/u instructions with pt; denies questions or concerns at this time. Ambulatory to lobby with steady gait. Patient states feeling better. Vital Signs: 19:58 BP 132 / 62; Pulse 74; Resp 18; Temp 98.8; Pulse Ox 98% on R/A; Weight 68.04 kg (R); aj1 Height 5 ft. 11 in. (180.34 cm) (R); Pain 4/10; 21:20 BP 120 / 62; Pulse 65; Resp 16; Pulse Ox 97% ; aa1 22:34 BP 122 / 75; Pulse 67; Resp 16; Temp 98.4; Pulse Ox 98% on R/A; Pain 3/10; aa1 19:58 Body Mass Index 20.92 (68.04 kg, 180.34 cm) aj1 ED Course: 19:36 Patient arrived in ED. jg7 19:45 Initial lab(s) drawn, by me, sent to lab. Inserted saline lock: 20 gauge in right aa1 antecubital area, using aseptic technique. Blood collected. 20:00 Triage completed. aj1 20:00 Arm band placed on Patient placed in waiting room, Patient notified of wait time. aj1 20:04 Damien Roberts MD is Attending Physician. daniela 20:11 Brittany Gallego RN is Primary Nurse. aj1 20:15 Patient has correct armband on for positive identification. Placed in gown. Bed in low aa1 position. Call light in reach. Pulse ox on. NIBP on. 20:48 Abdomen Acute Series XRAY In Process Unspecified. EDMS 21:10 US Abdomen Limited In Process Unspecified. EDMS 22:04 Marla Pastor MD is Referral Physician. daniela 22:34 No provider procedures requiring assistance completed. IV discontinued, intact, aa1 bleeding controlled, No redness/swelling at site. Pressure dressing applied. Administered Medications: 19:48 Drug: NS 0.9% 1000 ml Route: IV; Rate: 1 bolus; Site: right antecubital; aa1 22:19 Follow up: IV Status: Completed infusion; IV Intake: 1000ml aa1 19:48 Drug: ProTONIX 40 mg Route: IVP; Site: right antecubital; aa1 20:45 Follow up: Response: No adverse reaction; Pain is decreased aa1 Intake: 22:19 IV: 1000ml; Total: 1000ml. aa1 Outcome: 22:05 Discharge ordered by . daniela 22:34 Discharged to home ambulatory, with significant other. aa1 22:34 Condition: good 22:34 Discharge instructions given to patient, Instructed on discharge instructions, follow up and referral plans. medication usage, Demonstrated understanding of instructions, follow-up care, medications, Prescriptions given X 3. 22:35 Patient left the ED. aa1 Signatures: Dispatcher [employer] EDBrittany Morelos RN RN aj1 Helen Valentin RN RN aa1 Damien Roberts MD MD cha Gutierrez, Jessica jg7
--- NOTE | 2020-01-29 22:09 | EDPHYS ---
Physician Documentation [facility] [place], [place] Name: Trenotn Moon Age: 19 yrs Sex: Male : 2000 Arrival Date: 01/29/2020 Time: 19:36 Bed 14 Private MD: ED Physician Damien Roberts HPI: 01/28 21:08 This 19 yrs old Male presents to ER via Ambulatory with complaints of daniela Abdominal Pain. 21:08 The patient presents with abdominal pain in the upper abdomen. Onset: The daniela symptoms/episode began/occurred 2 day(s) ago. The symptoms do not radiate. Associated signs and symptoms: none. Modifying factors: The symptoms are alleviated by nothing, the symptoms are aggravated by food. Severity of pain: At its worst the pain was mild moderate in the emergency department the pain is unchanged. The patient has not experienced similar symptoms in the past. Historical: - Allergies: 20:00 POISON LOCO; aj1 - Home Meds: 20:00 None [Active]; aj1 - PMHx: 20:00 Heart Murmur; aj1 - PSHx: 20:00 None; aj1 - Immunization history:: Flu vaccine is not up to date. - Social history:: Smoking status: Patient/guardian denies using tobacco. - Family history:: not pertinent. ROS: 21:08 Constitutional: Negative for fever, chills, and weight loss, Eyes: Negative for injury, daniela pain, redness, and discharge, ENT: Negative for injury, pain, and discharge, Neck: Negative for injury, pain, and swelling, Cardiovascular: Negative for chest pain, palpitations, and edema, Respiratory: Negative for shortness of breath, cough, wheezing, and pleuritic chest pain, Back: Negative for injury and pain, : Negative for injury, bleeding, discharge, and swelling, MS/Extremity: Negative for injury and deformity, Skin: Negative for injury, rash, and discoloration, Neuro: Negative for headache, weakness, numbness, tingling, and seizure, Psych: Negative for depression, anxiety, suicide ideation, homicidal ideation, and hallucinations, Allergy/Immunology: Negative for hives, rash, and allergies, Endocrine: Negative for neck swelling, polydipsia, polyuria, polyphagia, and marked weight changes, Hematologic/Lymphatic: Negative for swollen nodes, abnormal bleeding, and unusual bruising. 21:08 Abdomen/GI: Positive for abdominal pain, of the epigastric area. Exam: 21:08 Constitutional: This is a well developed, well nourished patient who is awake, alert, daniela and in no acute distress. Head/Face: Normocephalic, atraumatic. Eyes: Pupils equal round and reactive to light, extra-ocular motions intact. Lids and lashes normal. Conjunctiva and sclera are non-icteric and not injected. Cornea within normal limits. Periorbital areas with no swelling, redness, or edema. ENT: Nares patent. No nasal discharge, no septal abnormalities noted. Tympanic membranes are normal and external auditory canals are clear. Oropharynx with no redness, swelling, or masses, exudates, or evidence of obstruction, uvula midline. Mucous membranes moist. Neck: Trachea midline, no thyromegaly or masses palpated, and no cervical lymphadenopathy. Supple, full range of motion without nuchal rigidity, or vertebral point tenderness. No Meningismus. Chest/axilla: Normal chest wall appearance and motion. Nontender with no deformity. No lesions are appreciated. Cardiovascular: Regular rate and rhythm with a normal S1 and S2. No gallops, murmurs, or rubs. Normal PMI, no JVD. No pulse deficits. Respiratory: Lungs have equal breath sounds bilaterally, clear to auscultation and percussion. No rales, rhonchi or wheezes noted. No increased work of breathing, no retractions or nasal flaring. Back: No spinal tenderness. No costovertebral tenderness. Full range of motion. Male : Normal genitalia with no discharge or lesions. Skin: Warm, dry with normal turgor. Normal color with no rashes, no lesions, and no evidence of cellulitis. MS/ Extremity: Pulses equal, no cyanosis. Neurovascular intact. Full, normal range of motion. Neuro: Awake and alert, GCS 15, oriented to person, place, time, and situation. Cranial nerves II-XII grossly intact. Motor strength 5/5 in all extremities. Sensory grossly intact. Cerebellar exam normal. Normal gait. Psych: Awake, alert, with orientation to person, place and time. Behavior, mood, and affect are within normal limits. 21:08 Abdomen/GI: Inspection: abdomen appears normal, Bowel sounds: normal, Palpation: moderate abdominal tenderness, in the epigastric area, right upper quadrant and left upper quadrant. Vital Signs: 19:58 BP 132 / 62; Pulse 74; Resp 18; Temp 98.8; Pulse Ox 98% on R/A; Weight 68.04 kg (R); aj1 Height 5 ft. 11 in. (180.34 cm) (R); Pain 4/10; 21:20 BP 120 / 62; Pulse 65; Resp 16; Pulse Ox 97% ; aa1 22:34 BP 122 / 75; Pulse 67; Resp 16; Temp 98.4; Pulse Ox 98% on R/A; Pain 3/10; aa1 19:58 Body Mass Index 20.92 (68.04 kg, 180.34 cm) 1 MDM: 20:03 Patient medically screened. [facility] 21:10 Data reviewed: vital signs, nurses notes, lab test result(s), radiologic studies, plain daniela films, ultrasound. 01/28 20:08 Order name: Basic Metabolic Panel [facility] 01/28 20:08 Order name: CBC with Diff [facility] 01/28 20:08 Order name: Creatinine for Radiology [facility] 01/28 20:08 Order name: Hepatic Function [facility] 01/28 20:08 Order name: Lipase [facility] 01/28 20:40 Order name: Urine Dipstick--Ancillary (enter results) [facility] 01/28 20:08 Order name: IV Saline Lock; Complete Time: 21:00 [facility] 01/28 20:08 Order name: Labs collected and sent; Complete Time: 21:00 [facility] 01/28 20:08 Order name: Urine Dipstick-Ancillary (obtain specimen); Complete Time: 20:32 [facility] 01/28 20:08 Order name: US Abdomen Limited [facility] 01/28 20:08 Order name: Abdomen Acute Series XRAY [facility] Administered Medications: 19:48 Drug: NS 0.9% 1000 ml Route: IV; Rate: 1 bolus; Site: right antecubital; aa1 22:19 Follow up: IV Status: Completed infusion; IV Intake: 1000ml [facility] 19:48 Drug: ProTONIX 40 mg Route: IVP; Site: right antecubital; aa1 20:45 Follow up: Response: No adverse reaction; Pain is decreased aa1 Disposition: 01/29/20 22:05 Discharged to Home. Impression: Abdominal tenderness, Gastritis, unspecified. - Condition is Stable. - Discharge Instructions: Abdominal Pain, Adult, Gastritis, Adult, Gastritis, Adult, [id number], Abdominal Pain, Adult, [id number]. - Prescriptions for Bentyl 20 mg Oral Tablet - take 1 tablet by ORAL route every 6 hours As needed; 20 tablet. Protonix 40 mg Oral Tablet - take 1 tablet by ORAL route once daily; 30 tablet. Zofran 4 mg Oral Tablet - take 1 tablet by ORAL route every 12 hours As needed; 20 tablet. - Medication Reconciliation Form, Thank You Letter, Antibiotic Education, Prescription Opioid Use form. - Follow up: Private Physician; When: 2 - 3 days; Reason: Recheck today's complaints, Continuance of care, Re-evaluation by your physician. Follow up: Marla Pastor; When: 2 - 3 days; Reason: Recheck today's complaints, Continuance of care, Re-evaluation by your physician. - Problem is new. - Symptoms have improved. Signatures: Dispatcher [employer] EDBrittany Morelos RN RN aj1 Helen Valentin RN RN aa1 Damien Roberts MD MD cha Corrections: (The following items were deleted from the chart) 22:35 22:05 01/29/2020 22:05 Discharged to Home. Impression: Abdominal tenderness; Gastritis, aa1 unspecified. Condition is Stable. Discharge Instructions: Abdominal Pain, Adult, Gastritis, Adult, Gastritis, Adult, [id number], Abdominal Pain, Adult, [id number]. Prescriptions for Bentyl 20 mg Oral Tablet - take 1 tablet by ORAL route every 6 hours As needed; 20 tablet, Protonix 40 mg Oral Tablet - take 1 tablet by ORAL route once daily; 30 tablet, Zofran 4 mg Oral Tablet - take 1 tablet by ORAL route every 12 hours As needed; 20 tablet. and Forms are Medication Reconciliation Form, Thank You Letter, Antibiotic Education, Prescription Opioid Use. Follow up: Private Physician; When: 2 - 3 days; Reason: Recheck today's complaints, Continuance of care, Re-evaluation by your physician. Follow up: Marla Pastor; When: 2 - 3 days; Reason: Recheck today's complaints, Continuance of care, Re-evaluation by your physician. Problem is new. Symptoms have improved. daniela
[2020-01-29 22:48] VITALS: BP 122/75; TEMP 98.4; O2SAT 98
== END 2020-01-29 22:35 | disposition home or self-care (01) ==
LOC: ER 19:34
DX: K29.70 Gastritis, unspecified, without bleeding (principal)
CPT/HCPCS: 36415; 74022; 76705; 80048; 80076; 81003; 83690; 85025; 96361; 96374; 99284; C9113; J7030

== ENCOUNTER 2020-10-02 17:14 | Emergency (ER) | payer SELFPAY ==
--- OUTSIDE RECORDS SUMMARY | 2020-10-02 17:16 | XMS REPORT | Continuity of Care Document ---
:2000 Author Organization [facility] t Address [address] [place] [address] Care Team Providers Name Role Phone Matthew SOSA Attending Clinician Problems This patient has no known problems. Allergies, Adverse Reactions, Alerts This patient has no known allergies or adverse reactions. Medications This patient has no known medications. Procedures This patient has no known procedures. Encounters Start End Encounter Admission Attending Care Care Encounter Source Date/Time Date/Time Type Type Clinicians Facility Department ID 2020-01-30 2020-01-30 Emergency Matthew [facility] [id number] 05:27:28 06:23:00 Juan Carlos Bailey [id number] [place] [id number] [place] [id number] Results This patient has no known results.
[2020-10-02] MEDS ORDERED: LIDOCAINE 1% W/EPI 1:100,000 MDV 20 ML VIAL ONE (18:31)
--- NOTE | 2020-10-02 18:41 | ER ---
Nurse's Notes [facility] Name: Trenton Moon Age: 20 yrs Sex: Male : 2000 Arrival Date: 10/02/2020 Time: 17:15 Bed 3 Private MD: Diagnosis: Laceration without foreign body of right hand Presentation: 10/02 17:17 Chief complaint: Patient states: "I fell while holding a bottle of beer and cut my jd3 hand.". Coronavirus screen: At this time, the client does not indicate any symptoms associated with coronavirus-19. Ebola Screen: Patient negative for fever greater than or equal to 101.5 degrees Fahrenheit, and additional compatible Ebola Virus Disease symptoms. Complicating Factors: There are no complicating factors for this patient. Initial Sepsis Screen: Does the patient meet any 2 criteria? No. Patient's initial sepsis screen is negative. Does the patient have a suspected source of infection? No. Patient's initial sepsis screen is negative. Risk Assessment: Do you want to hurt yourself or someone else? Patient reports no desire to harm self or others. Onset of symptoms was October 02, 2020. 17:17 Method Of Arrival: Ambulatory jd3 17:17 Acuity: VELASQUEZ 3 jd3 Triage Assessment: 17:20 General: Appears in no apparent distress. comfortable, Behavior is calm, cooperative, bp appropriate for age. Pain: Complains of pain in right hand. EENT: No deficits noted. Neuro: No deficits noted. Cardiovascular: No deficits noted. Respiratory: No deficits noted. GI: No signs and/or symptoms were reported involving the gastrointestinal system. : No signs and/or symptoms were reported regarding the genitourinary system. Derm: No deficits noted. Musculoskeletal: No deficits noted. Injury Description: Laceration sustained to right hand is clean, 0.5 to 2.5 cm long, not bleeding, was sustained less than 30 minutes ago. Historical: - Allergies: 17:19 POISON LOCO; jd3 - Home Meds: 17:19 None [Active]; jd3 - PMHx: 17:19 Heart Murmur; jd3 - PSHx: 17:19 None; jd3 - Immunization history:: Last tetanus immunization: < 5 years ago. - Social history:: Smoking status: Patient reports the use of cigarette tobacco products, denies chronic smoking, but will smoke occasionally. Screenin:00 Abuse screen: Denies threats or abuse. Denies injuries from another. Nutritional bp screening: No deficits noted. Tuberculosis screening: No symptoms or risk factors identified. Fall Risk None identified. Assessment: 17:20 General: SEE TRIAGE NOTE. bp 18:00 Injury Description: Laceration sustained to right hand. bp 18:41 Reassessment: PT D/C HOME AMBULATORY, DX WITH HAND LACERATION WITHOUT FOREIGN BODY. bp Vital Signs: 17:19 BP 136 / 78; Pulse 65; Resp 16 S; Temp 97.5(TE); Pulse Ox 99% on R/A; Weight 74.84 kg jd3 (R); Height 5 ft. 11 in. (180.34 cm) (R); Pain 3/10; 18:40 BP 127 / 72; Pulse 71; Resp 16; Temp 97.5; Pulse Ox 99% ; bp 17:19 Body Mass Index 23.01 (74.84 kg, 180.34 cm) jd3 ED Course: 17:15 Patient arrived in ED. ag5 17:18 Triage completed. jd3 17:21 Arm band placed on. jd3 18:00 Patient has correct armband on for positive identification. Bed in low position. Call bp light in reach. Side rails up X2. Adult w/ patient. 18:00 Assist provider with laceration repair on right hand that was 2.5 cm. or less using bp sutures. Set up tray. Performed by Ramakrishna BECERRA Dressed with Neosporin, Patient tolerated well. 18:14 Fareed Pacheco, JEFFREY is Primary Nurse. bp 18:15 Damien Roberts MD is Attending Physician. danieal 18:16 Damien Roberts MD is Attending Physician. daniela 18:16 Damien Roberts MD is Attending Physician. bp 18:17 Ramakrishna Higuera PA is PHCP. bp 18:40 Patient did not have IV access during this emergency room visit. bp Administered Medications: 18:39 Drug: Lidocaine-Epinephrine -1%: (1:100,000) 1 vials {Note: AT B/S.} Volume: 20 ml; bp Route: Infiltration; Outcome: 18:40 Discharged to home ambulatory, with family. bp 18:40 Condition: stable 18:40 Discharge instructions given to patient, Instructed on discharge instructions, follow up and referral plans. medication usage, wound care, Demonstrated understanding of instructions, follow-up care, medications, wound care. 18:41 Discharge ordered by MD. smith 18:58 Patient left the ED. bp Signatures: Damien Roberts MD MD cha Roszak, Josh, PA PA jr8 Davies, Jonathon, RN RN jd3 Fareed Pacheco RN RN Nic Chávez ag5
--- NOTE | 2020-10-02 18:41 | EDPHYS ---
Physician Documentation [facility] Name: Trenton Moon Age: 20 yrs Sex: Male : 2000 Arrival Date: 10/02/2020 Time: 17:15 Bed 3 Private MD: ED Physician Damien Roberts HPI: 10/02 18:38 This 20 yrs old Male presents to ER via Ambulatory with complaints of jr8 Laceration To Hand. 18:38 The patient has a laceration related to: falling occurred at home. The laceration(s) jr8 is(are) located on the right hand. Onset: The symptoms/episode began/occurred acutely, today. Associated signs and symptoms: The patient has no apparent associated signs or symptoms. The patient has not experienced similar symptoms in the past. The patient has not recently seen a physician. Patient stated that he tripped landing with beer bottle on right hand. Lacerated palm of hand. Historical: - Allergies: 17:19 POISON LOCO; jd3 - Home Meds: 17:19 None [Active]; jd3 - PMHx: 17:19 Heart Murmur; jd3 - PSHx: 17:19 None; jd3 - Immunization history:: Last tetanus immunization: < 5 years ago. - Social history:: Smoking status: Patient reports the use of cigarette tobacco products, denies chronic smoking, but will smoke occasionally. ROS: 18:38 Eyes: Negative for injury, pain, redness, and discharge, ENT: Negative for injury, jr8 pain, and discharge, Neck: Negative for injury, pain, and swelling, Cardiovascular: Negative for chest pain, palpitations, and edema, Respiratory: Negative for shortness of breath, cough, wheezing, and pleuritic chest pain, Abdomen/GI: Negative for abdominal pain, nausea, vomiting, diarrhea, and constipation, Back: Negative for injury and pain, MS/Extremity: Negative for injury and deformity, Neuro: Negative for headache, weakness, numbness, tingling, and seizure. 18:38 Skin: Positive for laceration(s), of the right hand. Exam: 18:38 Constitutional: This is a well developed, well nourished patient who is awake, alert, jr8 and in no acute distress. Cardiovascular: Regular rate and rhythm with a normal S1 and S2. No gallops, murmurs, or rubs. Normal PMI, no JVD. No pulse deficits. Respiratory: Lungs have equal breath sounds bilaterally, clear to auscultation and percussion. No rales, rhonchi or wheezes noted. No increased work of breathing, no retractions or nasal flaring. MS/ Extremity: Pulses equal, no cyanosis. Neurovascular intact. Full, normal range of motion. Neuro: Awake and alert, GCS 15, oriented to person, place, time, and situation. Cranial nerves II-XII grossly intact. Motor strength 5/5 in all extremities. Sensory grossly intact. Cerebellar exam normal. Normal gait. 18:38 Skin: injury, laceration(s), the wound is approximately 3.5 cm(s), with a depth of .3 cm(s), of the right hand, that can be described as no foreign body, irregular, with mild bleeding. Vital Signs: 17:19 BP 136 / 78; Pulse 65; Resp 16 S; Temp 97.5(TE); Pulse Ox 99% on R/A; Weight 74.84 kg jd3 (R); Height 5 ft. 11 in. (180.34 cm) (R); Pain 3/10; 18:40 BP 127 / 72; Pulse 71; Resp 16; Temp 97.5; Pulse Ox 99% ; bp 17:19 Body Mass Index 23.01 (74.84 kg, 180.34 cm) jd3 Laceration: 18:38 Wound Repair of 3.5cm ( 1.4in ) subcutaneous laceration to right hand. Irregularly jr8 shaped.. Skin/tissue flap noted.. Minimal bleeding noted.. Distal neuro/vascular/tendon intact. Anesthesia: Local anesthetic administered with 3 mls of 1% lidocaine w/ Epi. Wound prep: Moderate cleansing with betadine, Wound irrigation with saline, Wound explored extensively. Skin closed with 5 4-0 Prolene using interrupted sutures and sterile technique. Patient tolerated well. MDM: 18:15 Patient medically screened. daniela 18:[address] [facility] 18:38 Data reviewed: vital signs, nurses notes, and as a result, I will discharge patient. jr8 Data interpreted: Pulse oximetry: on room air is 99 %. Interpretation: normal. Counseling: I had a detailed discussion with the patient and/or guardian regarding: the historical points, exam findings, and any diagnostic results supporting the discharge/admit diagnosis, the need for outpatient follow up, a family practitioner, to return to the emergency department if symptoms worsen or persist or if there are any questions or concerns that arise at home. 10/02 18:39 Order name: Dressing - Wound; Complete Time: 18:39 bp 10/02 18:39 Order name: Gloves, Sterile; Complete Time: 18:39 bp 10/02 18:39 Order name: Setup Suture Tray; Complete Time: 18:39 bp Administered Medications: 18:39 Drug: Lidocaine-Epinephrine -1%: (1:100,000) 1 vials {Note: AT B/S.} Volume: 20 ml; bp Route: Infiltration; Disposition: 10/03 08:16 Co-signature as Attending Physician, Damien Roberts MD I agree with the assessment and daniela plan of care. Disposition: 10/02/20 18:41 Discharged to Home. Impression: Laceration without foreign body of right hand. - Condition is Stable. - Discharge Instructions: Laceration Care, Adult. - Medication Reconciliation Form, Thank You Letter, Antibiotic Education, Prescription Opioid Use form. - Follow up: Private Physician; When: 7 - 10 days; Reason: Wound Recheck, Recheck today's complaints, Continuance of care, Staple/Suture removal, Re-evaluation by your physician. - Problem is new. - Symptoms have improved. Signatures: Damien Roberts MD MD cha Roszak, Josh, PA PA jr8 Shay Cifuentes RN RN jFareed Kam RN RN bp Corrections: (The following items were deleted from the chart) 10/02 18:58 18:41 10/02/2020 18:41 Discharged to Home. Impression: Laceration without foreign body bp of right hand. Condition is Stable. Forms are Medication Reconciliation Form, Thank You Letter, Antibiotic Education, Prescription Opioid Use. Follow up: Private Physician; When: 7 - 10 days; Reason: Wound Recheck, Recheck today's complaints, Continuance of care, Staple/Suture removal, Re-evaluation by your physician. Problem is new. Symptoms have improved. jr8
[2020-10-02 22:19] VITALS: TEMP 97.5; O2SAT 99
[2020-10-02 22:22] VITALS: BP 127/72
== END 2020-10-02 18:58 | disposition home or self-care (01) ==
LOC: ER 17:14
PROC: 0JQJ0ZZ Repair Right Hand Subcutaneous Tissue and Fascia, Open Approach (ICD-10-PCS; principal; 2020-10-02)
DX: S61.411A Laceration without foreign body of right hand, initial encounter (principal); W01.110A Fall on same level from slipping, tripping and stumbling with subsequent striking against sharp glass, initial encounter; Y93.9 Activity, unspecified; Y92.9 Unspecified place or not applicable
CPT/HCPCS: 99283

== ENCOUNTER 2021-06-11 18:39 | Emergency (ER) | payer SELFPAY ==
--- OUTSIDE RECORDS SUMMARY | 2021-06-11 19:01 | XMS REPORT | Continuity of Care Document ---
:2000 Author Organization [facility] t Address [address] [place] [address] Care Team Providers Name Role Phone Matthew [...] Facility Department ID 2020-01-30 2020-01-30 Emergency Matthew [facility] [phone] [id number] 05:27:28 06:23:00 Juan Carlos Bailey [id number] Wing [id number] [place] [id number] Results This patient has no known results.
--- NOTE | 2021-06-11 19:57 | RAD REPORT ---
EXAM DESCRIPTION: CT - Head Brain Wo Cont - 06/11/2021 7:49 pm CLINICAL HISTORY: SYNCOPE COMPARISON: <Comparisons> TECHNIQUE: All CT scans are performed using dose optimization technique as appropriate and may inclu de automated exposure control or mA/KV adjustment according to patient size. FINDINGS: No intracranial hemorrhage, hydrocephalus or extra-axial fluid collection.No areas of brai n edema or evidence of midline shift. The paranasal sinuses and mastoids are clear. The calvarium is intact. IMPRESSION: No acute intracranial abnormality.
--- NOTE | 2021-06-11 20:21 | ER ---
Nurse's Notes [facility] Name: Trenton Moon Age: 20 yrs Sex: Male : 2000 Arrival Date: 06/11/2021 Time: 18:40 Bed 5 Private MD: Diagnosis: Syncope, Vasovagal Presentation: 06/11 18:40 Chief complaint: EMS states: pt was receiving his 1st COVID vaccine, had a syncopal sv episode after, fell to the ground hitting his R forehead on the ground. Possible seizure activity. Hematoma to the R forehead. Coronavirus screen: Client denies travel out of the [place] in the last 14 days. At this time, the client does not indicate any symptoms associated with coronavirus-19. Ebola Screen: No symptoms or risks identified at this time. Initial Sepsis Screen: Does the patient meet any 2 criteria? No. Patient's initial sepsis screen is negative. Does the patient have a suspected source of infection? No. Patient's initial sepsis screen is negative. Risk Assessment: Do you want to hurt yourself or someone else? Patient reports no desire to harm self or others. Onset of symptoms was June 11, 2021. 18:40 Method Of Arrival: EMS: [facility] sv 18:40 Acuity: VELASQUEZ 3 sv Triage Assessment: 18:43 General: Appears in no apparent distress. comfortable, Behavior is calm, cooperative, sv appropriate for age. Pain: Complains of pain in right side of forehead. Neuro: Level of Consciousness is awake, alert, obeys commands, Oriented to person, place, time, situation, Moves all extremities. Full function Gait is steady, Speech is normal, Facial symmetry appears normal, Reports a syncopal episode. Cardiovascular: Patient's skin is warm and dry. Respiratory: Airway is patent Respiratory effort is even, unlabored, Respiratory pattern is regular, symmetrical. Derm: Skin is normal. Historical: - Allergies: 18:43 POISON LOCO; sv 18:43 No Known Drug Allergies; sv - PMHx: 18:43 Heart Murmur; sv - Immunization history:: Client reports receiving the 1st dose of the Covid vaccine. - Social history:: Smoking status: . Screenin:45 Abuse screen: Denies threats or abuse. Denies injuries from another. Nutritional sv screening: No deficits noted. Tuberculosis screening: No symptoms or risk factors identified. Fall Risk None identified. Assessment: 21:00 Reassessment: Patient is alert, oriented x 3, equal unlabored respirations, skin bb warm/dry/pink. pt verbalized understanding of and agrees to plan of care discharge instructions given pt ambulated with steady gait to exit accompanied by family. Vital Signs: 18:40 BP 127 / 68; Pulse 64; Resp 16; Temp 98.2; Pulse Ox 98% ; sv ED Course: 18:40 Patient arrived in ED. sv 18:40 Sammi Amaro, RN is Primary Nurse. sv 18:43 Triage completed. sv 18:43 Arm band placed on. sv 18:44 Inserted saline lock: 20 gauge in right antecubital area, using aseptic technique. ap3 Blood collected. 18:45 Patient has correct armband on for positive identification. Bed in low position. Call sv light in reach. Side rails up X2. Pulse ox on. NIBP on. Door closed. Head of bed elevated. 19:04 Tam Patterson MD is Attending Physician. [facility] 19:05 Primary Nurse role handed off by Sammi Amaro, JEFFREY 19:05 Report given to Jose MURPHY and Michele RN. sv 19:13 Michele Saucedo, RN is Primary Nurse. em 19:49 CT Head Brain wo Cont In Process Unspecified. EDMS 21:00 IV discontinued, intact, bleeding controlled, No redness/swelling at site. Pressure bb dressing applied. 21:23 No provider procedures requiring assistance completed. bb Administered Medications: No medications were administered Outcome: 20:20 Discharge ordered by . [facility] 21:00 Discharged to home ambulatory, with family. bb 21:00 Condition: stable 21:00 Discharge instructions given to patient, Instructed on discharge instructions, follow up and referral plans. Demonstrated understanding of instructions, follow-up care. 21:01 Patient left the ED. bb Signatures: Dispatcher [employer] EDCT Sammi Amaro, JEFFREY MURPHY Micheel Saucedo, RN Yasmeen Chin RN RN Krista Ibrahim RN RN ap3 Tam Patterson MD MD [facility]
--- NOTE | 2021-06-11 20:21 | EDPHYS ---
Physician Documentation [facility] Name: Trenton Moon Age: 20 yrs Sex: Male : 2000 Arrival Date: 06/11/2021 Time: 18:40 Bed 5 Private MD: ED Physician Tam Patterson HPI: 06/11 19:37 This 20 yrs old Male presents to ER via EMS with complaints of Syncope, mh7 Probable Seizure. 19:37 The patient has experienced syncope, collapsed, lost consciousness. Onset: The mh7 symptoms/episode began/occurred just prior to arrival, today. Duration: This was a single episode, that lasted 5 second(s). Context: the episode(s) was witnessed, by a friend, occurred Pharmacy, occurred while the patient was sitting, Just prior to the episode the patient experienced lightheadedness, Occurred a few minutes after receiving his first COVID vaccination. Associated injury: Head/face: forehead, contusion. Associated signs and symptoms: Pertinent positives: lightheadedness, Pertinent negatives: abdominal pain, agitation, ataxia, blurred vision, chest pain, combativeness, confusion, diaphoresis, diarrhea, headache, nausea, numbness, palpitations, seizure, shortness of breath, tingling, vertigo, vomiting, weakness. Current symptoms: Currently, the patient is not experiencing any symptoms, the patient feels back to baseline, no decreased level of consciousness, no confusion, no dysphasia, no headache, no paralysis, no visual changes. The patient has experienced similar episodes in the past, several times, When receiving vaccinations with lacerations. 19:41 States that he was at pharmacy and received his first Covid examination when he became mh7 lightheaded and passed out for a few seconds. He reports similar episodes of passing out in the past with receiving vaccinations or with lacerations. He reports hitting his head on a carpeted floor when this episode occurred. He felt lightheaded prior to episode. He denies any other symptoms or complaints prior to episode. He states that he feels back to normal at time of evaluation in the ED.. Historical: - Allergies: 18:43 POISON LOCO; sv 18:43 No Known Drug Allergies; sv - PMHx: 18:43 Heart Murmur; sv - Immunization history:: Client reports receiving the 1st dose of the Covid vaccine. - Social history:: Smoking status: . ROS: 19:41 Constitutional: Negative for fever, chills, and weight loss, Eyes: Negative for injury, mh7 pain, redness, and discharge, ENT: Negative for injury, pain, and discharge, Neck: Negative for injury, pain, and swelling, Cardiovascular: Negative for chest pain, palpitations, and edema, Respiratory: Negative for shortness of breath, cough, wheezing, and pleuritic chest pain, Abdomen/GI: Negative for abdominal pain, nausea, vomiting, diarrhea, and constipation, Back: Negative for injury and pain, : Negative for injury, bleeding, discharge, and swelling, MS/Extremity: Negative for injury and deformity, Skin: Negative for injury, rash, and discoloration, Neuro: Negative for headache, weakness, numbness, tingling, and seizure, Psych: Negative for depression, anxiety, suicide ideation, homicidal ideation, and hallucinations, Allergy/Immunology: Negative for hives, rash, and allergies, Endocrine: Negative for neck swelling, polydipsia, polyuria, polyphagia, and marked weight changes, Hematologic/Lymphatic: Negative for swollen nodes, abnormal bleeding, and unusual bruising. Exam: 19:41 Constitutional: This is a well developed, well nourished patient who is awake, alert, mh7 and in no acute distress. 19:41 Eyes: Pupils equal round and reactive to light, extra-ocular motions intact. Lids and lashes normal. Conjunctiva and sclera are non-icteric and not injected. Cornea within normal limits. Periorbital areas with no swelling, redness, or edema. ENT: Nares patent. No nasal discharge, no septal abnormalities noted. Tympanic membranes are normal and external auditory canals are clear. Oropharynx with no redness, swelling, or masses, exudates, or evidence of obstruction, uvula midline. Mucous membranes moist. Neck: Trachea midline, no thyromegaly or masses palpated, and no cervical lymphadenopathy. Supple, full range of motion without nuchal rigidity, or vertebral point tenderness. No Meningismus. Chest/axilla: Normal chest wall appearance and motion. Nontender with no deformity. No lesions are appreciated. Cardiovascular: Regular rate and rhythm with a normal S1 and S2. No gallops, murmurs, or rubs. Normal PMI, no JVD. No pulse deficits. Respiratory: Lungs have equal breath sounds bilaterally, clear to auscultation and percussion. No rales, rhonchi or wheezes noted. No increased work of breathing, no retractions or nasal flaring. Abdomen/GI: Soft, non-tender, with normal bowel sounds. No distension or tympany. No guarding or rebound. No evidence of tenderness throughout. Back: No spinal tenderness. No costovertebral tenderness. Full range of motion. Skin: Warm, dry with normal turgor. Normal color with no rashes, no lesions, and no evidence of cellulitis. MS/ Extremity: Pulses equal, no cyanosis. Neurovascular intact. Full, normal range of motion. Neuro: Awake and alert, GCS 15, oriented to person, place, time, and situation. Cranial nerves II-XII grossly intact. Motor strength 5/5 in all extremities. Sensory grossly intact. Cerebellar exam normal. Normal gait. Psych: Awake, alert, with orientation to person, place and time. Behavior, mood, and affect are within normal limits. 19:41 Head/face: Noted is contusion, that is superficial, of the forehead. Vital Signs: 18:40 BP 127 / 68; Pulse 64; Resp 16; Temp 98.2; Pulse Ox 98% ; sv MDM: 20:19 Differential Diagnosis: cardiac arrhythmia, emotional response, idiopathic syncope, mh7 pseudo seizure, seizure, vasovagal episode. Data reviewed: vital signs, nurses notes, EKG, radiologic studies, CT scan. Data interpreted: Pulse oximetry: on room air is 98 %. Interpretation: normal. Counseling: I had a detailed discussion with the patient and/or guardian regarding: the historical points, exam findings, and any diagnostic results supporting the discharge/admit diagnosis, radiology results, the need for outpatient follow up, to return to the emergency department if symptoms worsen or persist or if there are any questions or concerns that arise at home. Response to treatment: the patient's symptoms have resolved after treatment, the patient's blood pressure is in an acceptable range, mental status has returned to baseline, the patient no longer shows bradycardia, the patient is not short of breath, the patient is not tachycardic, the patient's pain is gone, the patient's temperature has normalized, the patient's condition has returned to base line, the patient is now symptom free, patient is well hydrated. 20:20 Patient medically screened. [facility] 06/11 19:33 Order name: CT Head Brain wo Cont; Complete Time: 20:18 [facility] 06/11 19:33 Order name: EKG - Nurse/Tech; Complete Time: 20:18 [facility] Administered Medications: No medications were administered Disposition Summary: 06/11/21 20:20 Discharge Ordered Location: Home [facility] Problem: an acute exacerbation [facility] Symptoms: are resolved [facility] Condition: Stable [facility] Diagnosis - Syncope, Vasovagal [facility] Followup: [facility] - With: Private Physician - When: 1 - 2 days - Reason: Worsening of condition, Recheck today's complaints, Continuance of care, Re-evaluation by your physician Discharge Instructions: - Discharge Summary Sheet [facility] - Syncope, [id number] [facility] Forms: - Medication Reconciliation Form [facility] - Thank You Letter [facility] - Antibiotic Education [facility] - Prescription Opioid Use [facility] Signatures: Dispatcher [employer] Sammi Kemp RN RN sv Holmes, Maurice, MD MD [facility]
[2021-06-11 21:09] VITALS: BP 127/68; TEMP 98.2; O2SAT 98
--- NOTE | 2021-06-15 12:42 | EKG ---
Test Date: 2021-06-11 Test Time: 20:08:12 Uniform Designer: KEITH MEASUREMENT RESULTS: Intervals: Rate: 57 CA: 140 QRSD: 88 QT: 404 QTc: 393 [place]: P: 53 CA: 140 QRS: 49 T: 39 INTERPRETIVE STATEMENTS: Sinus bradycardia Otherwise normal ECG Compared to ECG 09/07/2019 16:00:22 Sinus rhythm no longer present Electronically Signed On 06-15-21 12:37:59 CDT by Anup Rodriguez
== END 2021-06-11 21:01 | disposition home or self-care (01) ==
LOC: ER 18:39
DX: R55 Syncope and collapse (principal); S00.83XA Contusion of other part of head, initial encounter; Z91.048 Other nonmedicinal substance allergy status
CPT/HCPCS: 70450; 93005; 99284

== ENCOUNTER 2023-06-04 20:17 | Emergency (ER) | payer SELFPAY ==
--- OUTSIDE RECORDS SUMMARY | 2023-06-04 20:21 | XMS REPORT | Continuity of Care Document ---
:2000 Author Organization [facility] t Address [address] [facility] [address] [place] [address] Care Team Providers Name Role Phone Shahab Diop MD Attending Clinician SHAHAB DIOP Attending Clinician Unavailable Problems This patient has no known problems. Allergies, Adverse Reactions, Alerts Allergy Allergy Status Severity Reaction(s) Onset Inactive Treating Comm ents Source Name Type Date Date Clinician NO KNOWN Drug Active Univers ALLERGIE Class ity of S [facility] Social History Social Habit Start Date Stop Date Quantity Comments Source Sex Assigned At Uni versity [facility] Smoking Status Start Date Stop Date Source Unknown if ever smoked Universit y [facility] Medications Ordered Filled Start Stop Current Ordering Indication Dosage Frequency Signature Comments Components Source Medication Medication Date Date Medication? Clinician (SIG) Name Name maalox:diph 2020-0 2020- No 15mL 15 mL, Uni vers enhydrAMINE 3-12 03-12 Oral, ity of :lidocaine 11:45: 10:40 ONCE, 1 Gianni as 2 % viscous 00 :00 dose, Mela Med ical 1:1:1 01/30/20 at [place] (FIRST-MOUT 0645, HWASH BLM) Routine oral suspension 15 mL pantoprazol 2020-0 Yes [id number] 40mg Take 1 Univers e 40 mg EC 3-12 tablet by ity of tablet 00:00: mouth [place] 00 daily. [facility] sucralfate 2020-0 Yes [id number] 1g Take 1 U nivers 1 gram 3-12 tablet by ity of tablet 00:00: mouth 00 before Medical meals and Branch at bedtime. ondansetron 2019-0 Yes [id number] 4mg Take 1 Univers 4 mg 3-12 tablet by ity of disintegrat 00:00: mouth [place] ing tablet 00 every 4 Medica l (four) Branch hours as needed for Nausea and Vomiting (N/V). Vital Signs Vital Name Observation Time Observation Value Comments Source Systolic blood 2020-01-30 11:00:00 134 mm[Hg] Univer sity of [facility] Diastolic blood 2020-01-30 11:00:00 61 mm[Hg] [facility] Heart rate 2020-01-30 11:00:00 67 /min Universi [facility] Respiratory rate 2020-01-30 11:00:00 23 /min [facility] saturation in 2020-01-30 11:00:00 97 /min University of Arterial blood by [facility] Pulse oximetry [place] Body temperature 2020-01-30 10:24:[address] [facility] Body height 2020-01-30 10:24:00 180.3 cm [facility] Body weight 2020-01-30 10:24:00 68.04 kg [facility] BMI 2020-01-30 10:24:00 20.92 kg/m2 [facility] Systolic blood 2020-01-30 11:00:00 134 mm[Hg] Univer sity of [facility] Diastolic blood 2020-01-30 11:00:00 61 mm[Hg] Unive rsity of [facility] Heart rate 2020-01-30 11:00:00 67 /min [facility] Respiratory rate 2020-01-30 11:00:00 23 /min [facility] Oxygen saturation in 2020-01-30 11:00:00 97 /min University of Arterial blood by [facility] Pulse oximetry [place] Body temperature 2020-01-30 10:24:[address] [facility] Body height 2020-01-30 10:24:00 180.3 cm [facility] Body weight 2020-01-30 10:24:00 68.04 kg [facility] BMI 2020-01-30 10:24:00 20.92 kg/m2 [facility] Procedures Procedure Date / Time Performing Clinician Source Performed NOTICE OF PRIVACY 2020-01-30 10:40:56 Doctor Unassigned, No Univ [facility] PRACTICES Name Medical Branch LIPASE 2020-01-30 10:37:00 Shahab Diop Ferguson o f [facility] HEPATIC FUNCTION PANEL 2020-01-30 10:37:00 Shahab Diop [facility] ([id number]) (ALB,T.PRO,BILI [facility] Branch T,BU/BC,ALT,AST,ALK PHOS) BASIC METABOLIC PANEL 2020-01-30 10:37:00 Shahab Diop [facility] (NA, K, CL, CO2, Medical Branch GLUCOSE, BUN, CREATININE, CA) CBC WITH DIFFERENTIAL 2020-01-30 10:37:00 Shahab Diop [facility] PROTHROMBIN TIME / INR 2020-01-30 10:37:00 Shahab Diop [facility] ACTIVATED PARTIAL 2020-01-30 10:37:[address] [facility] THRMPLAS YOHANNES [facility] CONSENT/REFUSAL FOR 2020-01-30 10:15:03 Doctor Unassigned, No [facility] DIAGNOSIS AND TREATMENT Name [facility] Encounters Start End Encounter Admission Attending Care Care Encounter Source Date/Time Date/Time Type Type Clinicians Facility Department ID 2020-01-30 2020-01-30 Emergency Matthew [facility] [id number] [facility] 05:27:28 06:23:00 Shahab Bailey [id number] i ty of [place] [id number] [facility] [id number] Medi mark [id number] Branch 2020-01-30 2020-01-30 Emergency Matthew [facility] [id number] 05:27:28 06:23:00 Shahab Bailey [id number] [place] [id number] [place] [id number] 2020-01-30 2020-01-30 Emergency X MATTHEW [facility] ERT [id number] 70 [facility] 05:15:00 05:15:00 [facility] [place] [facility] Results Test Description Test Time Test Comments Results Result Comments Source Hepatic Function Panel (ALB, T.PRO, BILI T, BU/BC, ALT , AST, 2020-01-30 11:05:00 ALK PHOS) Test Item Value Reference Range Interpretation Comme nts TOTAL BILI (test code = 4386160418) 0.6 mg/dL 0.1-1.1 BILI UNCON (test code = 5678588266) 0.3 mg/dL 0.1-1.1 BILI CONJ (test code = 6734750522) 0.0 mg/dL 0-0.3 T PROTEIN (test code = 3230589011) 7.7 g/dL 6.3-8.2 ALBUMIN (test code = 8193298321) 4.6 g/dL 3.5-5 ALK PHOS (test code = 9856615642) 51 U/L 34-122 ALTv (test code = 1742-6) 24 U/L 5-50 AST(SGOT) (test code = 6272814371) 58 U/L 13-40 H Lab Interpretation (test code = 17356-3) [facility]normal [facility] [id number] 11:05:00 Test Item Value Reference Range Interpretation Comments WBC (test code = See_Comment [Automated 7422-2) message] The sy stem which generated this result transmitted reference range : 4.20 - 10.70 10*3/?L. The reference range was not used to interpret this result as normal/abnormal . RBC (test code = See_Comment [Automated 175-8) message] The sy stem which generated this result transmitted reference range : 4.26 - 5.52 10*6/?L. The reference range was not used to interpret this result as normal/abnormal . HGB (test code = 14.8 g/dL 12.2-16.4 718-7) HCT (test code = 43.2 % 38.4-49.3 4544-3) MCV (test code = 86.7 fL 81.7-95.6 787-2) MCH (test code = 29.7 pg 26.1-32.7 785-6) MCHC (test code = 34.3 g/dL 31.2-35 786-4) RDW-SD (test code = 39.6 fL 38.5-51.6 69868-3) RDW-CV (test code = 12.4 % 12.1-15.4 788-0) PLT (test code = See_Comment [Automated 777-3) message] The sy stem which generated this result transmitted reference range : 150 - 328 10*3/ ?L. The reference r deanna was not used to interpret this result as normal/abnormal . MPV (test code = 9.8 fL 9.8-13 59576-4) NRBC/100 WBC (test See_Comment [Automat ed code = 2176141486) message] The system which generated this result transmitted reference range : 0.0 - 10.0 /100 WBCs. The refer ence range was not u sed to interpret th is result as normal/abnormal . NRBC x10^3 (test code <0.01 See_Comment [Auto mated = 3209790412) message] The s ystem which generated this result transmitted reference range : 10*3/?L. The reference range was not used to interpret this result as normal/abnormal . GRAN MAT (NEUT) % 64.9 % (test code = 770-8) IMM GRAN % (test code 1.00 % = 7970096698) LYMPH % (test code = 21.1 % 736-9) MONO % (test code = 11.1 % 5905-5) EOS % (test code = 1.4 % 713-8) BASO % (test code = 0.5 % 706-2) GRAN MAT x10^3(ANC) 6.41 10*3/uL 1.99-6.95 (test code = 1594693456) IMM GRAN x10^3 (test 0.10 10*3/uL 0-0.06 H code = 5368310606) LYMPH x10^3 (test code 2.08 10*3/uL 1.09-3.23 = 731-0) MONO x10^3 (test code 1.10 10*3/uL 0.36-1.02 H = 742-7) EOS x10^3 (test code = 0.14 10*3/uL 0.06-0.53 711-2) BASO x10^3 (test code 0.05 10*3/uL 0.01-0.09 = 704-7) Lab Interpretation Abnormal (test code = 86110-6) [facility] Metabolic Panel (NA, K, CL, CO2, GLUCOSE, BUN, CREATININE, CA)2020-01-30 11:05:00 Test Item Value Reference Range Interpretation Comments NA (test code = 140 mmol/L 135-145 8607098833) K (test code = 4.7 mmol/L 3.5-5 4243012382) CL (test code = 108 mmol/L 98-108 0433047400) CO2 TOTAL (test code = 22 mmol/L 23-31 L 0399070683) AGAP (test code = 2-16 6435370851) BUN (test code = 20 mg/dL 7-23 1408091583) GLUCOSE (test code = 130 mg/dL 70-110 H 5109499005) CREATININE (test code = 0.80 mg/dL 0.6-1.25 6980500589) CALCIUM (test code = 9.0 mg/dL 8.6-10.6 4645382720) eGFR Calculation mL/min/1.73m2 (Non-) (test code = 5835754599) eGFR Calculation mL/min/1.73m2 () (test code = 7699168704) NATHAN (test code = NATHAN) Association of Glomerular Filtration Rate (GFR) and Staging of Kidney Disease* + --+ --+ ------+| GFR (mL/min/1.73 m2) ?| With Kidney Damage ?| ?Without Kidney Damage+ --------+ --------+ +| ?>90 ?| ?Stage one ?| ? Normal ?+ ---+ ---+ -------+| ?60-89 ?| ?Stage two ?| ? Decreased GFR ? + --+ --+ ------+| ?30-59 ?| ?Stage three ?| ? Stage three ? + --+ --+ ------+| ?15-29 ?| ?Stage four ? | ? Stage four ?+ ---+ ---+ -------+| ?<15 (or dialysis) ? ?| ?Stage five ? | ? Stage five ?+ ---+ ---+ -------+ *Each stage assumes the associated GFR level has been in effect for at least three months. ?Stages 1 to 5, with or without kidney disease, indicate chronic kidney disease. Notes: Determination of stages one and two (with eGFR >59mL/min/1.73 m2) requires estimation of kidney damage for at least three months as defined by structural or functional abnormalities of the kidney, manifested by either:Pathological abnormalities or Markers of kidney damage (including abnormalities in the composition of the blood or urine or abnormalities in imaging tests). Lab Interpretation Abnormal (test code = 63237-3) [facility] [id number] 11:04:00 Test Item Value Reference Range Interpretation Comments LIPASE (test code = 3804667816) 92 U/L 0-220 Lab Interpretation (test code = Normal 03165-4) [facility] Time (PT) / [id number] 11:02:00 Test Item Value Reference Range Interpretation Comments PROTIME PATIENT (test See_Comment [Auto mated message] code = 5964-2) The system wh ich generated this result transmitted ref erence range: 12.0 - 1 4.7 Seconds. The re ference range was not u sed to interpret this result as normal/abnor mal. INR (test code = 6301-6) Nor mal INR <1.1; Warfarin Therap eutic range 2.0 to 3. 0 or 2.5 to 3.5, dep ending upon the indica tions. Lab Interpretation (test Normal code = 21400-6) [facility]2020-03-12 11:01:00 Test Item Value Reference Range Interpretation Comments APTT Patient (test See_Comment [Automat ed code = 3173-2) message] The system which generated this result transmitted reference range : 23 - 38 Seconds . The reference range was not used to interpr et this result as normal/abnormal . NATHAN (test code = NATHAN) The [facility] patient population mean normal value for aPTT is 30 seconds. Lab Interpretation Normal (test code = 32167-6) [facility]"
--- NOTE | 2023-06-04 21:08 | ER ---
Nurse's Notes [facility] Name: Trenton Moon Age: 22 yrs Sex: Male : 2000 Arrival Date: 06/04/2023 Time: 20:17 Bed 11 Private MD: Diagnosis: Shoulder contusion, chest contusion, shoulder sprain Presentation: 06/04 20:22 Chief complaint: Patient states: "I hurt my right shoulder working out and I haven't as6 been able to really use it for 2 weeks". Coronavirus screen: At this time, the client does not indicate any symptoms associated with coronavirus-19. Ebola Screen: No symptoms or risks identified at this time. Initial Sepsis Screen: Does the patient meet any 2 criteria? No. Patient's initial sepsis screen is negative. Does the patient have a suspected source of infection? No. Patient's initial sepsis screen is negative. Risk Assessment: Do you want to hurt yourself or someone else? Patient reports no desire to harm self or others. Onset of symptoms was May 21, 2023. 20:22 Method Of Arrival: Ambulatory as6 20:22 Acuity: VELASQUEZ 4 as6 Triage Assessment: 20:31 General: Appears in no apparent distress. Behavior is calm, cooperative. Pain: as6 Complains of pain in chest, anterior aspect of right shoulder and posterior aspect of right shoulder. EENT: No deficits noted. No signs and/or symptoms were reported regarding the EENT system. Neuro: Level of Consciousness is awake, alert, obeys commands, Oriented to person, place, time, situation. Cardiovascular: Capillary refill < 3 seconds Patient's skin is warm and dry. Respiratory: Respiratory effort is even, unlabored, Respiratory pattern is regular, symmetrical. Musculoskeletal: Range of motion: limited in right shoulder Reports pain in anterior aspect of right shoulder and posterior aspect of right shoulder. Historical: - Allergies: 20:25 POISON LOCO; as6 - PMHx: 20:25 Heart Murmur; as6 - PSHx: 20:25 None; as6 - Immunization history:: Client reports receiving the 2nd dose of the Covid vaccine, pfizer. - Social history:: Smoking status: Patient reports the use of cigarette tobacco products, denies chronic smoking, but will smoke occasionally. Screenin:32 [facility] ED Fall Risk Assessment (Adult) Score/Fall Risk Level 0 - 2 = Low Risk. Abuse as6 screen: Denies threats or abuse. Denies injuries from another. Nutritional screening: No deficits noted. Tuberculosis screening: No symptoms or risk factors identified. Vital Signs: 20:22 BP 148 / 76; Pulse 52; Resp 18 S; Temp 97.8(O); Pulse Ox 97% on R/A; Weight 72.57 kg as6 (R); Height 5 ft. 10 in. (R); Pain 7/10; 21:16 BP 138 / 81; Pulse 56; Resp 18 S; Pulse Ox 100% on R/A; as6 20:22 Body Mass Index 22.96 (72.57 kg, 177.8 cm) as6 20:22 Pain Scale: Adult as6 ED Course: 20:21 Patient arrived in ED. ag3 20:24 Molly Barry MD is Attending Physician. sp3 20:25 Triage completed. as6 20:25 Arm band placed on. as6 20:26 Dom Christianson, RN is Primary Nurse. as6 20:32 Bed in low position. Call light in reach. as6 21:05 Shoulder Right (2 View) XRAY In Process Unspecified. EDMS 21:05 CXR XRAY In Process Unspecified. EDMS 21:08 Bull Sutton MD is Referral Physician. sp3 21:16 Provided Education on: arm rest. as6 21:16 No provider procedures requiring assistance completed. Patient did not have IV access as6 during this emergency room visit. Sling applied to right arm. Administered Medications: No medications were administered Medication: 20:32 VIS not applicable for this client. as6 Outcome: 21:08 Discharge ordered by . sp3 21:16 Discharged to home ambulatory. as6 21:16 Condition: stable 21:16 Discharge instructions given to patient, Instructed on discharge instructions, follow up and referral plans. medication usage, Demonstrated understanding of instructions, follow-up care, medications, Prescriptions given X 1. 21:17 Patient left the ED. as6 Signatures: Dispatcher [employer] EDGA ChauhanRaquel hyatt 3 Molly Barry MD MD sp3 Dom Christianson, RN RN as6
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
[2023-06-04 21:25] VITALS: TEMP 97.8
[2023-06-04 21:26] VITALS: BP 138/81; O2SAT 100
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
== END 2023-06-04 21:17 | disposition home or self-care (01) ==
LOC: ER 20:17
DX: S43.401A Unspecified sprain of right shoulder joint, initial encounter (principal); S20.211A Contusion of right front wall of thorax, initial encounter
CPT/HCPCS: 71045; 99283